=== PATIENT | male | born 1935 | race Caucasian/White ===

== ENCOUNTER 2020-01-01 04:40 | Inpatient (IN) | payer MEDICARE ==
[~2020-01-01] VITALS: Ht 175.3 cm; Wt 84.0 kg
[2020-01-01 06:35] VITALS: BP 158/88
[2020-01-01 07:44] LABS: HEMATOCRIT 37.1 % (42.0-52.0); HEMOGLOBIN 11.5 g/dl (13.5-17.5); MEAN CORPUSCULAR HEMOGLOBIN 26.6 pg (27.0-33.0); MEAN CORPUSCULAR VOLUME 85.9 fl (80.0-96.0); PLATELET COUNT, AUTOMATED 288 10^3/uL (150-450); RED BLOOD COUNT 4.32 10^6/uL (4.30-6.10); WHITE BLOOD COUNT 12.8 10^3/uL (4.0-10.0)
[2020-01-01 08:04] LABS: INR 1.25; PROTHROMBIN TIME 15.4 SECONDS (11.8-14.0)
[2020-01-01] MEDS ORDERED: BETA1OI TOP (08:09)
[2020-01-01] MEDS ORDERED: LEFL1TAB4 PO (08:09)
[2020-01-01] MEDS ORDERED: BIOF4GEL4 TOP (08:09)
[2020-01-01] MEDS ORDERED: MYLASSUD PO (08:09)
[2020-01-01] MEDS ORDERED: PRED5TA PO (08:09)
[2020-01-01] MEDS ORDERED: CLOP75TA2 PO (08:09)
[2020-01-01] MEDS ORDERED: REPA1TAB6 PO (08:09)
[2020-01-01] MEDS ORDERED: ATOR40TA75 PO (08:09)
[2020-01-01] MEDS ORDERED: AMLO5TAB6 PO (08:09)
[2020-01-01] MEDS ORDERED: ASPI1CHW3 PO (08:09)
[2020-01-01] MEDS ORDERED: ACET-907 PO (08:09)
[2020-01-01] MEDS ORDERED: GUAI100L31 PO (08:09)
[2020-01-01] MEDS ORDERED: GABA600T4 PO (08:09)
[2020-01-01] MEDS ORDERED: TRIA1OI TOP (08:09)
[2020-01-01] MEDS ORDERED: INSUDET SC (08:09)
[2020-01-01] MEDS ORDERED: LISI-538 PO (08:09)
[2020-01-01] MEDS ORDERED: CALC0.009 TOP (08:09)
[2020-01-01] MEDS ORDERED: METO1TAB7 PO (08:09)
[2020-01-01] MEDS ORDERED: MIRA3350 PO (08:09)
[2020-01-01] MEDS ORDERED: COUG1LOZ8 MT (08:09)
[2020-01-01] MEDS ORDERED: LOPE-39 PO ×2 (08:09)
[2020-01-01] MEDS ORDERED: PANT-23 PO (08:09)
[2020-01-01] MEDS ORDERED: LASI40TA9 PO (08:09)
[2020-01-01] MEDS ORDERED: KETO0.02 OU (08:09)
[2020-01-01 08:12] LABS: ALBUMIN 2.9 GM/DL (3.2-5.2); ALT/SGPT 27 U/L (12-78); BILIRUBIN,TOTAL 0.6 MG/DL (0.2-1.0); BLOOD UREA NITROGEN 18 MG/DL (7-18); CALCIUM LEVEL 8.8 MG/DL (8.8-10.2); CARBON DIOXIDE LEVEL 28 MEQ/L (21-32); CHLORIDE LEVEL 104 MEQ/L (98-107); CREATININE FOR GFR 1.21 MG/DL (0.70-1.30); GLOMERULAR FILTRATION RATE > 60.0 (>35); GLUCOSE, FASTING 253 MG/DL (70-100); POTASSIUM SERUM 3.8 MEQ/L (3.5-5.1); SODIUM LEVEL 137 MEQ/L (136-145); TOTAL PROTEIN 6.4 GM/DL (6.4-8.2)
[2020-01-01] MEDS ORDERED: GLUCAGON FOR INJ 1 MG VIAL (J1610) SC PRN (09:00)
[2020-01-01] MEDS ORDERED: GLUCOSE 4 GM CHEW TABLET PO PRN (09:00)
[2020-01-01] MEDS: NYSTATIN 100,000 UNITS/GM TOPICAL PWD 15 GM TOP SCH ×2 (09:00→21:34)
[2020-01-01] MEDS ORDERED: DEXTROSE 50% 50 ML SYRINGE IV PRN (09:00)
[2020-01-01] MEDS ORDERED: CLOPIDOGREL 75 MG TAB PO SCH (09:00)
--- NOTE | 2020-01-01 10:01 | REP ---
RENAL ULTRASOUND: Real-time sonographic evaluation of the kidney performed. Right kidney is mildly smaller than the left. There is mild bilateral cortical thinning. Right kidney measures 10.3 x 5.2 x 5.3 cm and left kidney 12.4 x 5.6 x 5.6 cm. There is no hydronephrosis or renal mass identified bilaterally. There is a Wise catheter in the urinary bladder. IMPRESSION: Mild renal cortical thinning bilaterally with no hydronephrosis or evidence of renal mass sonographically. Electronically Signed by Judson Mckeon MD 01/01/2020 10:37 A
[2020-01-01] MEDS ORDERED: guaiFENesin SYRUP 200 MG/10 ML UDC PO PRN (11:30)
[2020-01-01] MEDS ORDERED: MIRALAX *UNIT DOSE* 17GM PACKET PO PRN (11:30)
[2020-01-01] MEDS ORDERED: MAALOX 30 ML SUSP *UDC PO PRN (11:30)
[2020-01-01] MEDS ORDERED: ACETAMINOPHEN TAB 650MG DOSE (2X325MG) PO PRN (11:30)
[2020-01-01] MEDS ORDERED: TRIAMCINOLONE ACET 0.1% OINTMENT 15 GM TOP PRN (11:30)
[2020-01-01] MEDS ORDERED: IPRATROPIUM 0.5MG/ALBUTEROL 2.5MG INH SOL UD 3ML (DUONEB)(J7620) NEB PRN (11:45)
[2020-01-01] MEDS: HumaLOG INSULIN (NovoLOG) PER UNIT SC SCH ×3 (12:00→21:00)
--- NOTE | 2020-01-01 12:32 | SMCUROLCON ---
Urology Consultation General Date of Consultation 01/01/20 Reason For Consultation This patient is seen for Hematuria. History of Present Illness The patient is a 84-year-old white male with a past medical history for gross hematuria. He was transfered to [facility] for gross hematuria. He is on Plavix. He resides at the [facility] and sent to the [facility] for gross hematuria where he was hooked up to [facility]. Bleeding continued and he was transfered to [facility]. He has a history of a UTI and was onantibiotics. Now has bladder spasms. CT negative for renal lesions, hydronephrosis or bladder abnormality. Past Medical History Medical History Cataracts, DM, GERD, Gout, HTN, Peripheral atrery disease, RA, COPD, Dementia, CKD Surgical Hstory Unknown Family History Family History non contributory Social History Social History Lives in an adult home Alcohol: Denies Drugs: denies Medications Current Medications Current Medications Medications (Trade) Dose Ordered Sig/Claudine Route PRN Reason Start Time Stop Time Status Last Admin Dose Admin Acetaminophen (Tylenol Tab) 650 mg Q6H PRN PO PAIN / FEVER 01/01/20 11:30 Al Hydrox/Mg Hydrox/Simethicone (Mylanta) 30 ml Q4H PRN PO HEARTBURN 01/01/20 11:30 Albuterol/ Ipratropium (Duoneb (Ipr 0.5mg/Alb 2.5mg)) 3 ml Q2HP PRN NEB SOB/WHEEZING 01/01/20 11:45 Amlodipine Besylate (Norvasc) 5 mg DAILY PO 01/01/20 09:00 Aspirin (Aspirin Chewable) 81 mg DAILY PO 01/01/20 09:00 Atorvastatin Calcium (Lipitor) 40 mg DAILY PO 01/01/20 09:00 Calcipotriene (Dovonex 0.005%) QHS TOP 01/01/20 21:00 Clopidogrel Bisulfate (PLAVix) 75 mg DAILY PO 01/01/20 09:00 Dextrose (Dextrose 50%) 25 ml ASDIRECTED PRN IV SEE LABEL COMMENTS 01/01/20 09:00 Gabapentin (Neurontin) 600 mg TID PO 01/01/20 09:00 Glucagon (Glucagon) 1 mg ASDIRECTED PRN SC SEE LABEL COMMENTS 01/01/20 09:00 Glucose (Glucose) 16 GM ASDIRECTED PRN PO SEE LABEL COMMENTS 01/01/20 09:00 Guaifenesin (Robitussin) 5 ml Q6H PRN PO COUGH 01/01/20 11:30 Home Med (Med Rec Complete!) ASDIRECTED XX 01/01/20 08:15 01/01/20 08:11 DC Insulin Detemir (Levemir Insulin) 50 units BID SC 01/01/20 09:00 Insulin Human Lispro (HumaLOG INSULIN) SEE PROTOCOL TABLE AC SC 01/01/20 12:00 Insulin Human Lispro (HumaLOG INSULIN) SEE PROTOCOL TABLE QHS SC 01/01/20 21:00 Lisinopril (Prinivil) 20 mg BID PO 01/01/20 09:00 Metoprolol Succinate (TopROL XL) 50 mg DAILY PO 01/01/20 09:00 Pantoprazole Sodium (Protonix) 40 mg DAILY PO 01/01/20 09:00 Polyethylene Glycol (Miralax) 1 pkt DAILY PRN PO CONSTIPATION 01/01/20 11:30 Prednisone (Deltasone) 5 mg DAILY PO 01/01/20 09:00 Triamcinolone Acetonide (Kenalog 0.1% Ointment) BID PRN TOP DRY SKIN 01/01/20 11:30 Allergies Allergies: Coded Allergies: Tetanus Vaccines and Toxoid (Verified Allergy, Unknown, 01/01/20) naproxen (Verified Allergy, Unknown, 01/01/20) lactose (Verified Adverse Reaction, Unknown, INTOLERANCE, 01/01/20) Review of Systems General: Reports: Normal Appetite; Denies: Fatigue, Malaise Constitutional: Denies: Fever, Chills, Sweats, Weakness, Malaise Eyes: Denies: Pain, Vision change ENT: Denies: Head Aches, Sore Throat, Epistaxis Skin: Denies: Rash, Lesions, Breakdown, Nail Changes Pulmonary: Reports: Other Symptoms (rales) Cardiovascular: Denies Chest Pain, Denies Palpitations Gastrointestinal: Denies: Nausea, Vomiting, Abdominal Pain Genitourinary: Reports: Hematuria, Retention Hematologic: Denies: Bruising, Bleeding Excessively Musculoskeletal: Denies: Neck Pain, Back Pain Neurological: Denies: Weakness, Numbness, Incoordination, Change in Speech Physical Examination General Exam: Cooperative, No Acute Distress EYE EXAM: PERRLA, Conjunctiva & lids normal, EOMI; No: Sclera icteric ENT EXAM: Atraumatic, Mucous membr. moist/pink, Pharynx Normal Neck Exam: Supple; No: JVD, thyromegaly Chest Exam: Clear to auscultation, Normal air movement Heart Exam: Rate Normal, Regular Rhythm, Normal S1, Normal S2; No: Murmurs, Rubs Abdomen Exam: Normal Bowel Sounds, Soft; No: Tenderness, Hepatospenomegaly Male Exam Circumcised with [address] crowell. Testes atrophic Prostate 25 gm, benign Skin Exam: Nl turgor and temperature; No: Rash, Breakdown Neuro Exam: Normal Gait, Normal Speech, Cranial Nerves 3-12 NL, Reflexes 2+ Vital Signs/I&O Vital Signs Date Time Temp Pulse Resp B/P (MAP) Pulse Ox O2 Delivery O2 Flow Rate FiO2 01/01/20 06:35 98.1 87 21 158/88 (111) 96 Room Air Laboratory Data 24H Labs Laboratory Tests 2 01/01/20 07:19: Nucleated Red Blood Cells % (auto) 0.0, Prothrombin Time 15.4H, Prothromb Time International Ratio 1.25, Anion Gap 5L, Glomerular Filtration Rate > 60.0, Calcium Level 8.8, Total Bilirubin 0.6, Aspartate Amino Transf (AST/SGOT) 18, Alanine Aminotransferase (ALT/SGPT) 27, Alkaline Phosphatase 193H, Total Protein 6.4, Albumin 2.9L, Albumin/Globulin Ratio 0.83L 01/01/20 11:33: Urine Color REDH, Urine Appearance CLOUDYH, Urine pH 8.0, Urine Specific [place] 1.005, Urine Protein 2+H, Urine Glucose (UA) 3+H, Urine Ketones NEGATIVE, Urine Blood 3+H, Urine Nitrite NEGATIVE, Urine Bilirubin NEGATIVE, Urine Urobilinogen 0.2, Urine Leukocyte Esterase 1+H, Urine WBC (Auto) TNTCH, Urine RBC (Auto) TNTCH, Urine Hyaline Casts (Auto) 0, Urine Bacteria (Auto) NEGATIVE, Urine Squamous Epithelial Cells 0, Urine Sperm (Auto) 01/01/20 11:37: Bedside Glucose (Misc Panel) 223H CBC/BMP Laboratory Tests 01/01/20 07:19 Microbiology Microbiology 01/01/20 Urine Culture, Received Pending 01/01/20 Blood Culture, Received Pending 01/01/20 Blood Culture, Received Pending Assessment Gross hematuria on Plavix and bladder spasms Plan Continue CBI Await cultures Hold Plavix If hematuria does not clear in 1-2 days, may need cystoscopy. Time Spent on Consult: Time Spent / Consult (Minutes): 70 THOMPSON MEZA MD Jan 01, 2020 12:32
[2020-01-01] MEDS: lisinopriL 20 MG TAB PO SCH ×2 (12:33→21:33)
[2020-01-01] MEDS: METOPROLOL SUCC (TopROL XL) 50MG **XL** TAB PO SCH (12:33)
[2020-01-01] MEDS: PANTOPRAZOLE 40MG TAB (PROTONIX) PO SCH (12:33)
[2020-01-01] MEDS: ATORVASTATIN 20 MG TAB PO SCH (12:33)
[2020-01-01] MEDS: ASPIRIN 81 MG CHEW TABLET PO SCH (12:33)
[2020-01-01] MEDS: amLODIPine 5 MG TAB PO SCH (12:34)
[2020-01-01] MEDS: GABAPENTIN 300 MG CAP PO SCH ×3 (12:34→21:32)
[2020-01-01] MEDS: predniSONE 5 MG TAB PO SCH (12:34)
[2020-01-01] MEDS: LEVEMIR (INSULIN DETEMIR) 1 UNITS/0.01ML SC SCH ×2 (12:35→21:34)
[2020-01-01] MEDS: oxyBUTYnin 5 MG TAB PO PRN (12:42)
[2020-01-01 13:21] LABS: HEMATOCRIT 36.6 % (42.0-52.0); HEMOGLOBIN 11.7 g/dl (13.5-17.5)
[2020-01-01 14:00] VITALS: BP 179/95
--- NOTE | 2020-01-01 17:17 | HPE ---
DATE OF ADMISSION: 01/01/2020 PRIMARY CARE PROVIDER: Dr. Gustafson in [place] He is a resident of [place] assisted [facility]. HISTORY OF THE PRESENT ILLNESS: Marcelo is an 84-year-old male with extensive past medical history as noted below and chronically on aspirin and Plavix due to stents from peripheral vascular disease, directly transferred from [facility] due to persistent hematuria. He reports he had a urinary tract infection (UTI) about 2 weeks ago for which he started antibiotics about 1 week ago and reportedly still has three pills left. He is unsure of the antibiotic. He reports that he has had randall hematuria with blood clots as of yesterday and went into the emergency room (ER) and had a Wise placed with continuous bladder irrigation with noticeable urinary retention as well. Hematuria persisted, and he was thereafter transferred to [facility] for high level of care. He reports his symptoms started around 6:00 p.m. last night and had a similar episode around 4 years ago in [place], which did not require any surgical intervention and improved with supportive care at that time. He reports some discomfort since the Wise was placed; however, otherwise denies any dysuria, urgency, frequency, or any other episodes of hematuria. Denies any history of kidney stones or passing any recent stones. No fever, chills, nausea, vomiting, or any other blood loss. He has no other complaints and reports he is otherwise doing well. Of note, he also reports a 20-pound unintentional weight loss over the past 6 months, and a cough with camilo phlegm, which also began around 2 weeks ago, but is now improving. Per transfer records, his UA was found to be cloudy with trace leukocytes, large blood and too numerous to count RBCs but was otherwise negative for any signs of infection. White count at that point was 10.5 with an hemoglobin and hematocrit (H and H) of 12.3 and 38.5 and an INR of 1.2. He had a chest x- ray done at [place] that was unremarkable as well as CT of the abdomen and pelvis without contrast that was negative for any acute changes. No nephrolithiasis, ureterolithiasis or hydronephrosis. He will be directly admitted to the medical floor and urology will be contacted. PAST MEDICAL HISTORY: Peripheral vascular disease, on aspirin and Plavix and two stents in the left leg. Rheumatoid arthritis. 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 Insulin-dependent diabetes mellitus, type 2 with neuropathy. Chronic obstructive pulmonary disease (COPD). No supplemental oxygen at baseline. Chronic kidney disease, stage III. History of CVA in 2002 in [place]. Dyslipidemia. Gout. BPH with urinary retention and obstruction. Gastroesophageal reflux disease (GERD). Hypertension. HOME MEDICATIONS: - Tylenol 650 mg by mouth every 6 hours as needed - aluminum, magnesium, simethicone 30 mL by mouth every 4 hours as needed for heartburn - amlodipine 5 mg by mouth daily - aspirin 81 mg by mouth daily - atorvastatin 40 mg by mouth daily - betamethasone topical as needed for itching. - calcipotriene one dose topical nightly - Plavix 75 mg by mouth daily - Lasix 40 mg by mouth daily - gabapentin 600 mg by mouth three times a day - guaifenesin 5 mL by mouth every 6 hours as needed for cough - Levemir 75 units subcu twice a day - ketotifen fumarate one drop ophthalmic three times a day as needed for itching - leflunomide 20 mg by mouth daily - lisinopril 20 mg by mouth twice a day - loperamide 2 mg by mouth daily and 2 mg by mouth as needed for diarrhea - menthol one dose topical as needed for pain - metoprolol succinate 50 mg by mouth daily - Protonix 40 mg by mouth daily - MiraLAX 17 grams by mouth daily as needed for constipation - prednisone 5 mg by mouth daily - repaglinide 4 mg by mouth three times a day - triamcinolone one dose topically twice a day as needed for dry skin SOCIAL HISTORY: Prior tobacco use. Quit about 10 years ago. Smoked one pack per day for 60 years. Denies any alcohol or illicit substances. He is retired and lives in [facility]. 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 SURGICAL HISTORY: Right rotator cuff repair with a titanium valerie. Bilateral hammertoe repair. Tonsillectomy. Two stents in the left lower leg for peripheral vascular disease and bilateral cataracts. FAMILY HISTORY: Mother had COPD, father had prostate cancer and diabetes mellitus and of a heart attack. Brother passed of bladder cancer. ALLERGIES: TETANUS VACCINE and TOXOID per the patient caused angioedema and NAPROXEN and LACTOSE unknown. REVIEW OF SYSTEMS: Denies fever, chills, night sweats. Admits to 20-pound unintentional weight loss over the past 6 months. Denies any headache, blurred vision, or hearing changes. No issues with eating or drinking. Denies chest pain or palpitations. No shortness of breath. Admits to coughing with camilo phlegm production, now improving. No wheezing or chest wall pain. Denies any abdominal pain or any hematochezia, melena. Has bouts of constipation and diarrhea for which he is on chronic medication. Admits to urinary retention with hematuria with similar episode in the past. Denies dysuria, urgency, frequency or any passing of kidney stones. Denies any lower extremity swelling, rashes, lumps, bumps, or any new weaknesses or paresthesias. PHYSICAL EXAM: Vital Signs: Temperature 98.1, pulse 87, respirations 21, blood pressure 158/88, mean arterial pressure (MAP) of 111, pulse oximetry 96% on room air. He is laying comfortably in bed in no acute distress. Alert and oriented times three, pleasantly conversant, hard of hearing. Head is normocephalic, atraumatic with moist mucous membranes with suboptimal dentition. No oral lesions. Patent airway. Neck: Supple without any appreciable adenopathy. No jugular venous distention (JVD). Heart: Regular rate and rhythm. No appreciable murmur, clicks, gallops. Distant heart sounds due to body habitus. Lungs: Clear throughout with mild wheezing bilateral bases. No accessory muscle use or signs of distress. Speaking in full sentences. Abdomen: Obese with reducible hernia superior to the umbilicus. No other abdominal masses appreciated. No rebound, guarding, rigidity. Genitourinary (): Wise catheter in place with bright red bloody output that is also leaking out of the catheter insertion site. Lower Extremities: No edema. Able to move all extremities. Muscle strength intact and equal bilaterally. Neurologic: No focal deficits. Appropriately follows commands. Skin: No visible rashes. LABS: WBC 12.8, hemoglobin and hematocrit 11.5 and 37.1, platelets 288. Sodium and potassium 137 and 3.8. Chloride and bicarbonate 104 and 28. BUN and creatinine 18 and 1.21. AST, ALT 18 and 127. Alkaline phosphatase 193. Albumin 2.9. INR 1.25. Urine is red, cloudy, 2+ protein, 3+ glucose, 3+ blood, 1+ leukocyte esterase, too numerous to count WBCs, too numerous to count RBCs. Blood cultures pending times two sets. Urine culture pending. Renal ultrasound on admission shows mild renal cortical thinning bilaterally with no hydronephrosis or evidence of renal mass sonographically. A chest x-ray done in [facility] was negative for acute cardiopulmonary process and CT of the abdomen and pelvis without contrast done at [facility] showed fat stranding in the anterior abdomen, likely his abdominal hernia and was negative for nephrolithiasis, ureterolithiasis, or hydronephrosis and was otherwise unremarkable. ASSESSMENT AND PLAN: This is an 84-year-old male chronically on aspirin and Plavix for coronary artery disease and peripheral vascular disease with left extremity stent, presenting for hematuria, started suddenly 6:00 p.m. last night. Transferred from [facility] to [facility]. Originally resides in [place] assisted [facility]. 1. Randall hematuria. Source unknown at this time. Initial UA in [place] was negative for signs of infection. Per our UA, there is 1+ leukocyte esterase, negative for nitrites, and too numerous to count WBCs but negative for bacteria. Urine culture is pending. Currently will await the culture. Patient is otherwise afebrile and hemodynamically stable. Will hold off on antibiotics at this time. Imaging also negative for any obstructing stones or other intrinsic renal abnormality. Urology is consulted; appreciate Dr. Cervantes input. Per his recommendations, continuous bladder irrigation at this time and await cultures, hold the Plavix and possible cystoscopy if hematuria does not clear in 1-2 days. Monitor hemoglobin and hematocrit. Currently stable at 11. Continue pain control and monitor urinary output. 2. Coronary artery disease/peripheral vascular disease with left lower extremity stents. History of silent myocardial infarction (AZ). No cardiac complaints and is otherwise stable. Aspirin is continued. Will hold Plavix for the next 2 days per urology recommendations. Monitor hemoglobin and hematocrit. 3. Chronic obstructive pulmonary disease, stable. No signs of exacerbation. Breathing room air. Continue his chronic prednisone. 4. Rheumatoid arthritis. Continue prednisone and leflunomide. 5. Alternating constipation/diarrhea. Monitor bowel movements. He is chronically on bowel meds. Adjust accordingly. 6. Non-insulin dependent diabetes mellitus, type 2. Levemir 75 units subcu twice a day and repaglinide at home. Continue insulin sliding scale inpatient. Gabapentin for neuropathy continued. 7. Dyslipidemia. Continue statin. 8. Hypertension. Continue amlodipine and lisinopril and metoprolol succinate. Will hold Lasix at this time as we monitor renal function. 9. CVA. No acute deficits, stable. 10. Chronic kidney disease, stage III. Monitor renal function with current creatinine 1.21, GFR greater than 60, which is stable compared to labs done at [place]. No other labs to compare to. 11. Gastroesophageal reflux disease. Continue proton pump inhibitor (PPI). 12. Deep vein thrombosis (DVT) prophylaxis. Mechanical. DISPOSITION: Patient is directly transferred from [place] to [facility]. Admit to medical floor. Urology following. Monitor for clinical improvement. CODE STATUS: Discussed in depth with patient; he confirms DO NOT RESUSCITATE/DO NOT INTUBATE (DNR/DNI) and no feeding tubes. Medical Orders for Life-Sustaining Treatment (MOLST) form was filled out with staff present. He also reports his healthcare proxy is his son with contact information in the chart. DRU
[2020-01-01 18:09] LABS: HEMATOCRIT 35.4 % (42.0-52.0); HEMOGLOBIN 11.1 g/dl (13.5-17.5)
[2020-01-01 18:46] VITALS: BP 165/78
[2020-01-01] MEDS: CALCIPOTRIENE CREAM 0.005% 60GM TOP SCH (21:35)
[2020-01-01 22:00] VITALS: BP 159/80
[2020-01-02 00:12] LABS: HEMATOCRIT 33.6 % (42.0-52.0); HEMOGLOBIN 10.6 g/dl (13.5-17.5)
[2020-01-02 06:00] VITALS: BP 163/82
[2020-01-02 06:04] LABS: BASO # 0.1 10^3/uL (0.0-0.2); BASO % 0.7 % (0.0-1.0); EOS # 0.3 10^3/uL (0.0-0.5); EOS % 3.1 % (0.0-3.0); HEMATOCRIT 34.8 % (42.0-52.0); HEMOGLOBIN 10.7 g/dl (13.5-17.5); LYMPH # 2.2 10^3/uL (1.5-5.0); LYMPH % 22.9 % (24.0-44.0); MEAN CORPUSCULAR HEMOGLOBIN 26.6 pg (27.0-33.0); MEAN CORPUSCULAR HGB CONC 30.7 g/dl (32.0-36.5); MEAN CORPUSCULAR VOLUME 86.6 fl (80.0-96.0); MONO # 0.7 10^3/uL (0.0-0.8); MONO % 7.4 % (0.0-5.0); NEUTROPHILS # 6.2 10^3/uL (1.5-8.5); PLATELET COUNT, AUTOMATED 281 10^3/uL (150-450); RED BLOOD COUNT 4.02 10^6/uL (4.30-6.10); WHITE BLOOD COUNT 9.5 10^3/uL (4.0-10.0)
[2020-01-02 06:17] LABS: BLOOD UREA NITROGEN 19 MG/DL (7-18); CALCIUM LEVEL 8.9 MG/DL (8.8-10.2); CARBON DIOXIDE LEVEL 31 MEQ/L (21-32); CHLORIDE LEVEL 107 MEQ/L (98-107); CREATININE FOR GFR 1.16 MG/DL (0.70-1.30); GLOMERULAR FILTRATION RATE > 60.0 (>35); GLUCOSE, FASTING 105 MG/DL (70-100); POTASSIUM SERUM 3.3 MEQ/L (3.5-5.1); SODIUM LEVEL 140 MEQ/L (136-145)
[2020-01-02] MEDS ORDERED: POTASSIUM CHLORIDE 10 MEQ SR TABLET PO ONE (07:30)
[2020-01-02] MEDS: ASPIRIN 81 MG CHEW TABLET PO SCH (08:31)
[2020-01-02] MEDS: GABAPENTIN 300 MG CAP PO SCH ×3 (08:31→21:00)
[2020-01-02] MEDS: predniSONE 5 MG TAB PO SCH (08:31)
[2020-01-02] MEDS: METOPROLOL SUCC (TopROL XL) 50MG **XL** TAB PO SCH (08:32)
[2020-01-02] MEDS: PANTOPRAZOLE 40MG TAB (PROTONIX) PO SCH (08:32)
[2020-01-02] MEDS: ATORVASTATIN 20 MG TAB PO SCH (08:32)
[2020-01-02] MEDS: NYSTATIN 100,000 UNITS/GM TOPICAL PWD 15 GM TOP SCH ×2 (08:33→21:01)
[2020-01-02] MEDS: amLODIPine 5 MG TAB PO SCH (08:33)
[2020-01-02] MEDS: lisinopriL 20 MG TAB PO SCH ×2 (08:33→21:00)
[2020-01-02] MEDS: HumaLOG INSULIN (NovoLOG) PER UNIT SC SCH ×4 (08:34→21:00)
[2020-01-02] MEDS: LEVEMIR (INSULIN DETEMIR) 1 UNITS/0.01ML SC SCH ×2 (08:34→21:01)
--- NOTE | 2020-01-02 08:59 | IPNPDOC ---
Subjective Review oF Systems Chief Complaint The patient is a 84-year-old male admitted with a reason for visit of Hematuria. Events since Last Encounter Per nursing, the patient required manually irrigation once o/n. Otherwise the catheter drained well on slow CBI. The patient denies pain. No n/v. No f/c/ns. Objective Physical Examination General Exam: Alert, Cooperative ABDOMEN EXAM: BS Hyperactive, Soft; No: Tenderness Skin Exam: Nl turgor and temperature Neuro Exam: Normal Speech Psych Exam: Mental status NL, Mood NL Other physical findings 3-way catheter in place w/ pink urine draining in the tubing w/ CBI currently clamped off Vital Signs/I&O Vital Signs Date Time Temp Pulse Resp B/P (MAP) Pulse Ox O2 Delivery O2 Flow Rate FiO2 01/02/20 08:32 95 142/59 01/02/20 06:00 97.1 18 90 Room Air I&O- Last 24 Hours up to 6 AM 01/02/20 06:00 Intake Total 1060 ml Output Total 1700 ml Balance -640 ml Laboratory Data Labs 24H Laboratory Tests 2 01/01/20 11:33: Urine Color REDH, Urine Appearance CLOUDYH, Urine pH 8.0, Urine Specific [place] 1.005, Urine Protein 2+H, Urine Glucose (UA) 3+H, Urine Ketones NEGATIVE, Urine Blood 3+H, Urine Nitrite NEGATIVE, Urine Bilirubin NEGATIVE, Urine Urobilinogen 0.2, Urine Leukocyte Esterase 1+H, Urine WBC (Auto) TNTCH, Urine RBC (Auto) TNTCH, Urine Hyaline Casts (Auto) 0, Urine Bacteria (Auto) NEGATIVE, Urine Squamous Epithelial Cells 0, Urine Sperm (Auto) 01/01/20 11:37: Bedside Glucose (Misc Panel) 223H 01/01/20 16:44: Bedside Glucose (Misc Panel) 218H 01/01/20 20:44: Bedside Glucose (Misc Panel) 240H 01/02/20 05:43: Immature Granulocyte % (Auto) 0.9, Neutrophils (%) (Auto) 65.0, Lymphocytes (%) (Auto) 22.9L, Monocytes (%) (Auto) 7.4H, Eosinophils (%) (Auto) 3.1H, Basophils (%) (Auto) 0.7, Neutrophils # (Auto) 6.2, Lymphocytes # (Auto) 2.2, Monocytes # (Auto) 0.7, Eosinophils # (Auto) 0.3, Basophils # (Auto) 0.1, Nucleated Red Blood Cells % (auto) 0.0, Anion Gap 2L, Glomerular Filtration Rate > 60.0, Calcium Level 8.9, Magnesium Level 2.0 CBC/BMP Laboratory Tests 01/01/20 13:08 01/01/20 18:00 01/01/20 23:42 01/02/20 05:43 FSBS Laboratory Tests Test 01/01/20 11:37 01/01/20 16:44 01/01/20 20:44 Range/Units Bedside Glucose (Misc Panel) 223 218 240 83-110 MG/DL Microbiology Microbiology 01/01/20 Urine Culture, Received Pending 01/01/20 Blood Culture, Received Pending 01/01/20 Blood Culture, Received Pending Assessment/Plan Date Seen The patient was seen on 01/02/20. Patient Summary This is an 84 y/o M normally on plavix, admitted for gross hematuria and clot retention. His Hb is stable. Hematuria appears to be improving w/ plavix dc'd. Urine culture still pending. Plan/VTE VTE Prophylaxis Ordered?: Yes VTE Exclusion Mechanical Proph: N/A:VTE Prophy Ordered Plan/Urinary Catheter Reason for insertion/continuin: Acute obstruct/retention Plan - continue to hold plavix - f/u urine culture - keep CBI clamped as long as urine is pink or clearer - if patient does well off of CBI all day today, potentially ok for discharge tomorrow w/ catheter in place - if hematuria worsens where he is clotting off the catheter, he will require cystoscopy JOVANNA BELLO MD Jan 02, 2020 08:59
[2020-01-02] MEDS: oxyBUTYnin 5 MG TAB PO PRN (09:44)
[2020-01-02 14:00] VITALS: BP 145/63
--- NOTE | 2020-01-02 15:42 | IPNPDOC ---
Text Note Date of Service The patient was seen on 01/02/20. NOTE S: Pt examined at bedside. Felling well, no complaints. Hematuria slightly clearer today and still having clots. CBI was clamped this am. H&H stable. No f/c/cp/sob/pelvic pain. PE: Vitals: see below General: NAD, A&Ox3, resting comfortably HEENT: NCAT, EOMI, anicteric sclera, MMM CV: RRR, no murmurs or clicks or rub. No edema RESP: wheezing throughout, improved from prior day. No resp distress ABD: soft, NT, ND. Benign EXTREMITIES: 2+ radial pulses b/l, able to move all extremities : Wise catheter in place with CBI clamped. Light red urine output, less bloody than yesterday. Bladder nontender to palpation NEURO: no focal deficits or acute changes A/P: This is an 84-year-old male resident of [facility], chronically on aspirin and Plavix for coronary artery disease and peripheral vascular disease with left extremity stent, presenting for hematuria, started suddenly 6:00 p.m. night before admission. Direct transfer from [facility] to [facility]. 1. David hematuria. - persists but improving with CBI. CBI was clamped this am per Urology, and restarted given his clots; appreciate Urology input - source unclear currently; imaging & [place] UA negative - H&H stable. Planned for OR with tomorrow - cystoscopy pending - NPO after midnight, start gentle fluids then - pain control & continue holding Plavix per Urology - per Revised Cardiac Risk Index, 3 pts = 15% risk of cardiac event within 30days. Pt has >4METs and no anginal equivalent - hemodynamically stable & optimized for OR. Decrease insulin dose tonight and in am. Monitor resp status intra & post-op. 2. CAD/PVD with LLE stents. - History of silent myocardial infarction - stable, no cardiac or leg complaints - Aspirin is continued. Plavix on hold 3. COPD - no signs of exacerbation. - prn nebs & continue chronic prednisone 4. Rheumatoid arthritis - Continue prednisone and leflunomide. 5. Alternating constipation/diarrhea - Monitor bowel movements. He is chronically on bowel meds. - Adjust accordingly 6. NIDDM2 with neuropathy - Continue ISS & basal insulin inpt - acceptable range - Levemir 75 units subcu twice a day and repaglinide at home. - Gabapentin for neuropathy continued. 7. Dyslipidemia - Continue statin. 8. Hypertension - Continue amlodipine and lisinopril and metoprolol succinate. - Lasix on hold with renal function monitoring and awaiting OR; euvolemic 9. Hx of CVA - No acute deficits, stable. 10. Chronic kidney disease, stage III - stable from prior 11. GERD - continue PPI DVT ppx: mechanical CODE STATUS: DNR/DNI, no feeding tubes. MOLST reviewed with pt and signed on admission, in chart. Son is HCP DISPOSITION: pending clinical improvement. OPtimized for OR tomorrow am with Joseph Carlos, I+O Joseph PAZ I+O Laboratory Tests 01/01/20 13:08 01/01/20 18:00 01/01/20 23:42 01/02/20 05:43 Vital Signs Date Time Temp Pulse Resp B/P (MAP) Pulse Ox O2 Delivery O2 Flow Rate FiO2 01/02/20 08:32 95 142/59 01/02/20 06:00 97.1 18 90 Room Air I&O- Last 24 Hours up to 6 AM 01/02/20 06:00 Intake Total 1060 ml Output Total 1700 ml Balance -640 ml GME ATTESTATION GME ATTESTATION My faculty preceptor for this patient encounter was physically present during the encounter and was fully available. All aspects of the patient interview, examination, medical decision making process, and medical care plan development were reviewed and approved by the faculty preceptor. The faculty preceptor is aware and concurs with the plan as stated in the body of this note and will attest to such by his/her cosignature. ATTENDING NOTE I, Aniya Moffett, have independently examined this patient and performed my own physical exam, as well as reviewed the documentation and edited where necessary. I have discussed in detail with the resident / student the findings and plan of treatment as documented by the resident / student and edited their note. I agree with their findings and treatment plan and have edited their documentation. I will continue to follow the patient during this hospital stay. LEONARDO CESPEDES DO Jan 02, 2020 11:20 ANIYA MOFFETT MD Jan 02, 2020 15:42
[2020-01-02] MEDS: LOPERAMIDE 2 MG CAPLET PO PRN (16:16)
[2020-01-02] MEDS: CALCIPOTRIENE CREAM 0.005% 60GM TOP SCH (21:02)
[2020-01-02 22:00] VITALS: BP 145/67
[2020-01-03] VITALS (11 sets, daily range): BP systolic 123–192; BP diastolic 58–84; O2SAT 92
[2020-01-03] MEDS: D5W/0.45% SODIUM CHLORIDE 1,000 ML IV SCH ×2 (00:15→11:49)
[2020-01-03] MEDS: oxyBUTYnin 5 MG TAB PO PRN ×2 (04:36→17:11)
[2020-01-03 06:10] LABS: BASO # 0.1 10^3/uL (0.0-0.2); BASO % 0.8 % (0.0-1.0); EOS # 0.3 10^3/uL (0.0-0.5); EOS % 2.6 % (0.0-3.0); HEMATOCRIT 31.4 % (42.0-52.0); HEMOGLOBIN 9.8 g/dl (13.5-17.5); LYMPH # 1.7 10^3/uL (1.5-5.0); MEAN CORPUSCULAR HEMOGLOBIN 27.1 pg (27.0-33.0); MEAN CORPUSCULAR HGB CONC 31.2 g/dl (32.0-36.5); MONO # 0.7 10^3/uL (0.0-0.8); MONO % 6.9 % (0.0-5.0); NEUTROPHILS # 7.7 10^3/uL (1.5-8.5); NEUTROPHILS % 72.5 % (36.0-66.0); PLATELET COUNT, AUTOMATED 272 10^3/uL (150-450); RED BLOOD COUNT 3.61 10^6/uL (4.30-6.10); WHITE BLOOD COUNT 10.6 10^3/uL (4.0-10.0)
[2020-01-03 06:29] LABS: CREATININE FOR GFR 1.26 MG/DL (0.70-1.30); GLOMERULAR FILTRATION RATE 58.3 (>35); MAGNESIUM LEVEL 1.8 MG/DL (1.8-2.4); POTASSIUM SERUM 3.9 MEQ/L (3.5-5.1)
[2020-01-03] MEDS: HumaLOG INSULIN (NovoLOG) PER UNIT SC SCH ×4 (07:30→21:19)
[2020-01-03] MEDS: IPRATROPIUM 0.5MG/ALBUTEROL 2.5MG INH SOL UD 3ML (DUONEB)(J7620) NEB SCH ×3 (08:00→19:50)
[2020-01-03] MEDS ORDERED: ALBUTEROL SULFATE 2.5 MG/0.5 ML INH NEB SOLN As Ordered ONE (08:06)
[2020-01-03] MEDS ORDERED: ALBUTEROL SULFATE 2.5 MG/0.5 ML INH NEB SOLN INH ONE (08:15)
[2020-01-03] MEDS ORDERED: fentaNYL 250 MCG/5 ML INJECTION (J3010) As Ordered ONE (08:16)
[2020-01-03] MEDS ORDERED: MIDAZOLAM INJ 2 MG/2 ML VIAL (J2250) As Ordered ONE (08:16)
[2020-01-03] MEDS ORDERED: dexameTHASONE 4 MG/ML 1ML VIAL (J1100 PER 1MG) As Ordered ONE (08:17)
[2020-01-03] MEDS ORDERED: ONDANSETRON 4MG/2ML VIAL (J2405) As Ordered ONE (08:17)
[2020-01-03] MEDS ORDERED: ROCURONIUM BROMIDE 50 MG/5 ML VIAL As Ordered ONE ×2 (08:17→09:42)
[2020-01-03] MEDS ORDERED: propofoL 200 MG/20 ML VIAL As Ordered ONE (08:17)
[2020-01-03] MEDS ORDERED: LIDOCAINE 2% INJ 100 MG/5 ML SDV (FOR ANES.) As Ordered ONE (08:17)
--- NOTE | 2020-01-03 08:23 | IPNPDOC ---
Subjective Review oF Systems Chief Complaint The patient is a 84-year-old male admitted with a reason for visit of Hematuria. Events since Last Encounter The patient's catheter stopped draining a few times yesterday, requiring manual irrigation. He feels well at this time and denies pain. No n/v. No f/c/ns. Objective Physical Examination General Exam: Alert, Cooperative Chest Exam: Normal air movement Heart Exam: Positive: Rate Normal ABDOMEN EXAM: Soft; No: Tenderness Skin Exam: Nl turgor and temperature Neuro Exam: Normal Speech Psych Exam: Mental status NL, Mood NL Other physical findings 3-way catheter in place w/ CBI on and dark pink urine draining Vital Signs/I&O Vital Signs Date Time Temp Pulse Resp B/P (MAP) Pulse Ox O2 Delivery O2 Flow Rate FiO2 01/03/20 07:40 98.1 93 20 192/78 (116) 93 Room Air I&O- Last 24 Hours up to 6 AM 01/03/20 06:00 Intake Total 44145 ml Output Total 26178 ml Balance -4690 ml Laboratory Data Labs 24H Laboratory Tests 2 01/02/20 12:30: Bedside Glucose (Misc Panel) 262H 01/02/20 16:52: Bedside Glucose (Misc Panel) 273H 01/02/20 20:39: Bedside Glucose (Misc Panel) 245H 01/03/20 05:41: Immature Granulocyte % (Auto) 1.2, Neutrophils (%) (Auto) 72.5H, Lymphocytes (%) (Auto) 16.0L, Monocytes (%) (Auto) 6.9H, Eosinophils (%) (Auto) 2.6, Basophils (%) (Auto) 0.8, Neutrophils # (Auto) 7.7, Lymphocytes # (Auto) 1.7, Monocytes # (Auto) 0.7, Eosinophils # (Auto) 0.3, Basophils # (Auto) 0.1, Nucleated Red Blood Cells % (auto) 0.0, Anion Gap 5L, Glomerular Filtration Rate 58.3, Calcium Level 8.0L, Magnesium Level 1.8 CBC/BMP Laboratory Tests 01/03/20 05:41 FSBS Laboratory Tests Test 01/02/20 12:30 01/02/20 16:52 01/02/20 20:39 Range/Units Bedside Glucose (Misc Panel) 262 273 245 83-110 MG/DL Microbiology Microbiology 01/01/20 Urine Culture - Final, Complete 01/01/20 Blood Culture - Preliminary, Resulted No growth after 24 hours . All specim... 01/01/20 Blood Culture - Preliminary, Resulted No growth after 24 hours . All specim... Assessment/Plan Date Seen The patient was seen on 01/03/20. Patient Summary This is an 84 y/o M admitted w/ gross hematuria and clot retention. His Hb is stable, but his catheter keeps clotting off. I recommended that we take him to the OR this morning for cystoscopy, clot evacuation, possible transurethral resection of bladder tumors, bilateral retrograde pyelograms. After a discussion of the risks and benefits, informed consent was signed. Plan/VTE VTE Prophylaxis Ordered?: Yes VTE Exclusion Mechanical Proph: N/A:VTE Prophy Ordered Plan/Urinary Catheter Reason for insertion/continuin: Acute obstruct/retention Plan - plan for OR now - 2g ancef human resources communications manager to OR - NPO - can resume a regular diet postop JOVANNA BELLO MD Jan 03, 2020 08:23
[2020-01-03] MEDS ORDERED: ceFAZolin SOD 2 GM in IV 1 EA IV ONE (08:30)
[2020-01-03] MEDS ORDERED: CONRAY-60 60% 50ML VIAL (Q9961) As Ordered ONE (08:35)
[2020-01-03] MEDS ORDERED: ceFAZolin 2 GM/D5W 50 ML IV BAG (J0690 PER 500MG) As Ordered ONE (08:35)
[2020-01-03] MEDS ORDERED: ACETAMINOPHEN 1000MG 100ML IV BTL (OFIRMEV) (J0131 PER 10MG) As Ordered ONE (09:11)
[2020-01-03] MEDS ORDERED: SUGAMMADEX SODIUM 500 MG/5 ML VIAL (BRIDION) As Ordered ONE (09:38)
--- NOTE | 2020-01-03 10:00 | REP ---
Retrograde pyelogram: Five views. History: Clot evacuation. Hematuria. 7 seconds of fluoroscopy time is reported. Findings: A sequence of five last image hold fluoroscopically obtained spot radiographs of the abdomen document ureteral cannulation, contrast injection bilaterally. Electronically Signed by Vasquez Mccallum MD 01/03/2020 09:53 A
[2020-01-03] MEDS ORDERED: LEVALBUTEROL 1.25 MG/0.5 ML CONCENTRATE NEB As Ordered ONE (10:17)
--- NOTE | 2020-01-03 10:29 | RO ---
DATE OF PROCEDURE: 01/03/2020 PREPROCEDURE DIAGNOSIS: Gross hematuria. POSTPROCEDURE DIAGNOSIS: Gross hematuria. PROCEDURE: Cystoscopy, transurethral resection of bladder mass (greater than 5 cm), clot evacuation, bilateral retrograde pyelogram with intraoperative images. SURGEON: Lars Soto MD PAYROLL TAX ANALYST: None. ANESTHESIA: General. OPERATIVE INDICATIONS: This is an 84-year-old male who presented to the hospital with gross hematuria and clot retention a few days ago. As his catheter continued to clot off, he presented to the hospital and, therefore, brought to the operating room today for the above-listed procedure. DESCRIPTION OF PROCEDURE: The patient was brought to the operating room, and general anesthesia was induced. Prophylactic antibiotics were infused. The patient was then placed in the dorsal lithotomy position and prepped and draped in the usual sterile fashion. At this point, a resectoscope was inserted into the urethral meatus and advanced into the bladder using a visual obturator. Once inside the bladder, of note, there was a very large blood clot occupying almost a large portion of the bladder lumen. I tried to use an Ellik evacuator to evaluate the clot, but this would not break the clot up enough to get it out of the bladder. I therefore utilized a bipolar loop to resect the clot and break it up into smaller pieces; and after that was done, I was able to evacuate all the clot out of the bladder using the Ellik evacuator. Once that was done, the bladder was thoroughly examined, and no tumors were seen. Both ureteral orifices were orthotopic; and, of note, they did not efflux any urine while I examined them. Next, I utilized a 5-Romanian open-ended ureteral catheter and obtained bilateral retrograde pyelograms. Both were negative for filling defects, hydronephrosis, or extravasation. I then examined the bladder once again, and there were very small areas of bleeding at the bladder base that were cauterized. Also, inside the prostatic urethra, there was a moderate amount of bleeding. This was also cauterized. On the posterior bladder wall, there was a moderate amount of bladder edema, likely from the catheter. This area was also cauterized. There was no significant area of bleeding found, but once I was done cauterizing, I examined the bladder for several minutes, and it no longer appeared to be an active bleeding at all. At this point, I withdrew the resectoscope and inserted a 20-Romanian Wise catheter. The balloon was filled with 10 mL of sterile water, and then the catheter was connected to gravity drainage. This marked the conclusion of the procedure. The patient was then taken out of the dorsal lithotomy position, awakened from anesthesia, and transported to the recovery room in stable condition. ESTIMATED BLOOD LOSS: 10 mL. COMPLICATIONS: None. SPECIMENS: None. PLAN: The patient will be taken back up to the regular nursing floor. He will be monitored throughout the day; and if his urine remains pink or clearer through tomorrow and his blood counts remain stable, he can be discharged home with the catheter in place. We will schedule followup in the urology clinic in a week or two for catheter removal. DRU
[2020-01-03] MEDS ORDERED: LR 1,000 ML IV SCH (10:30)
[2020-01-03] MEDS ORDERED: oxyCODONE 5MG TAB PO PRN (10:30)
[2020-01-03] MEDS ORDERED: ONDANSETRON 4MG/2ML VIAL (J2405) IV PRN (10:30)
[2020-01-03] MEDS ORDERED: fentaNYL 100 MCG/2 ML INJECTION (J3010) IV PRN (10:30)
[2020-01-03] MEDS ORDERED: oxyCODONE 5MG TAB As Ordered ONE (10:41)
[2020-01-03] MEDS ORDERED: LEVALBUTEROL 1.25 MG/0.5 ML CONCENTRATE NEB INH ONE (11:00)
[2020-01-03] MEDS: GABAPENTIN 300 MG CAP PO SCH ×3 (11:47→21:20)
[2020-01-03] MEDS: ASPIRIN 81 MG CHEW TABLET PO SCH (11:47)
[2020-01-03] MEDS: ATORVASTATIN 20 MG TAB PO SCH (11:47)
[2020-01-03] MEDS: amLODIPine 5 MG TAB PO SCH (11:48)
[2020-01-03] MEDS: METOPROLOL SUCC (TopROL XL) 50MG **XL** TAB PO SCH (11:48)
[2020-01-03] MEDS: PANTOPRAZOLE 40MG TAB (PROTONIX) PO SCH (11:48)
[2020-01-03] MEDS: predniSONE 5 MG TAB PO SCH (11:48)
[2020-01-03] MEDS: lisinopriL 20 MG TAB PO SCH ×2 (11:48→21:19)
[2020-01-03] MEDS: NYSTATIN 100,000 UNITS/GM TOPICAL PWD 15 GM TOP SCH ×2 (11:49→21:20)
[2020-01-03] MEDS: LEVEMIR (INSULIN DETEMIR) 1 UNITS/0.01ML SC SCH ×2 (11:49→21:19)
[2020-01-03 15:28] LABS: HEMATOCRIT 30.8 % (42.0-52.0); HEMOGLOBIN 9.4 g/dl (13.5-17.5)
--- NOTE | 2020-01-03 16:45 | IPNPDOC ---
Text Note Date of Service The patient was seen on 01/03/20. NOTE S: Pt examined at bedside. Underwent retrograde pyelogram and cystoscopy earlier today and is doing well post-op. H&H stable. No f/c/cp/sob/pelvic pain. Wise still bleeding light red, but no clots. PE: Vitals: see below General: NAD, A&Ox3, resting comfortably HEENT: NCAT, EOMI, anicteric sclera, MMM CV: RRR, no murmurs or clicks or rub. No edema RESP: wheezing throughout, improved from prior day. No resp distress ABD: soft, NT, ND. Benign EXTREMITIES: 2+ radial pulses b/l, able to move all extremities : Wise catheter in place. One [place] urine; no visible clot. Bladder nontender to palpation NEURO: no focal deficits or acute changes A/P: This is an 84-year-old male resident of [facility], chronically on aspirin and Plavix for coronary artery disease and peripheral vascular disease with left extremity stent, presenting for hematuria, started suddenly 6:00 p.m. night before admission. Direct transfer from [facility] to [facility]. 1. David hematuria 2/2 bladder & urethral bleed - pt asymptomatic & H&H stable - cystoscopy with Dr. Soto today revealed >5cm blood clot in bladder that was resected & evacuated; no tumors; small areas of bleeding at bladder base cauterized; moderate bleeding in prostatic urethra - Wise remains in place. Do Wise teaching - Per Urology: hold Plavix at least 1 week, monitor Wise output, if remains pink or clearer, may d/c homewith catheter; f/u Urology clinic 1-2 weeks 2. CAD/PVD with LLE stents. - History of silent myocardial infarction - stable, no cardiac or leg complaints - Aspirin is continued. Plavix on hold 3. COPD - no signs of exacerbation. - prn nebs & continue chronic prednisone 4. Rheumatoid arthritis - Continue prednisone and leflunomide. 5. Alternating constipation/diarrhea - Monitor bowel movements. He is chronically on bowel meds. - Adjust accordingly 6. NIDDM2 with neuropathy - Continue ISS & basal insulin inpt - acceptable range - Levemir 75 units subcu twice a day and repaglinide at home. - Gabapentin for neuropathy continued. 7. Dyslipidemia - Continue statin. 8. Hypertension - Continue amlodipine and lisinopril and metoprolol succinate. - Lasix on hold with renal function monitoring and awaiting OR; euvolemic 9. Hx of CVA - No acute deficits, stable. 10. Chronic kidney disease, stage III - stable from prior 11. GERD - continue PPI DVT ppx: mechanical CODE STATUS: DNR/DNI, no feeding tubes. MOLST reviewed with pt and signed on admission, in chart. Son is HCP DISPOSITION: pending clinical improvement. Cleared PT. Likely home 24-42 hrs. VS,Fishbone, I+O VS, Fishbone, I+O Laboratory Tests 01/03/20 05:41 01/03/20 15:06 Vital Signs Date Time Temp Pulse Resp B/P (MAP) Pulse Ox O2 Delivery O2 Flow Rate FiO2 01/03/20 15:20 97.2 98 20 142/68 (92) 94 Nasal Cannula 3.0 I&O- Last 24 Hours up to 6 AM 01/03/20 06:00 Intake Total 48674 ml Output Total 13942 ml Balance -4690 ml GME ATTESTATION GME ATTESTATION My faculty preceptor for this patient encounter was physically present during the encounter and was fully available. All aspects of the patient interview, examination, medical decision making process, and medical care plan development were reviewed and approved by the faculty preceptor. The faculty preceptor is aware and concurs with the plan as stated in the body of this note and will attest to such by his/her cosignature. ATTENDING NOTE I, Aniya Moffett, have independently examined this patient and performed my own physical exam, as well as reviewed the documentation and edited where necessary. I have discussed in detail with the resident / student the findings and plan of treatment as documented by the resident / student and edited their note. I agree with their findings and treatment plan and have edited their documentation. I will continue to follow the patient during this hospital stay. LEONARDO CESPEDES DO Jan 03, 2020 16:45 ANIYA MOFFETT MD Jan 03, 2020 22:07
[2020-01-03] MEDS: PHENAZOPYRIDINE 100 MG TAB PO SCH ×2 (18:36→21:20)
[2020-01-03] MEDS ORDERED: POTASSIUM CHLORIDE 10 MEQ SR TABLET PO ONE (21:15)
[2020-01-03] MEDS: CALCIPOTRIENE CREAM 0.005% 60GM TOP SCH (21:20)
[2020-01-03 21:52] LABS: CALCIUM LEVEL 7.2 MG/DL (8.8-10.2); CREATININE FOR GFR 1.83 MG/DL (0.70-1.30); GLOMERULAR FILTRATION RATE 37.9 (>35); POTASSIUM SERUM 4.9 MEQ/L (3.5-5.1)
[2020-01-03] MEDS ORDERED: NS 1,000 ML IV SCH (22:00)
[2020-01-03] MEDS: NS 1,000 ML IV SCH (22:32)
[2020-01-03] MEDS ORDERED: HumuLIN R (REGULAR) INSULIN (NovoLIN R) **100U/ML** PER UNIT SC ONE (23:00)
[2020-01-04] VITALS (8 sets, daily range): BP systolic 151–167; BP diastolic 81–89; O2SAT 92–94
[2020-01-04] MEDS ORDERED: HumuLIN R (REGULAR) INSULIN (NovoLIN R) **100U/ML** PER UNIT SC ONE ×2 (01:00→03:00)
[2020-01-04] MEDS: IPRATROPIUM 0.5MG/ALBUTEROL 2.5MG INH SOL UD 3ML (DUONEB)(J7620) NEB SCH ×4 (01:19→19:27)
[2020-01-04 04:26] LABS: BASO % 0.3 % (0.0-1.0); HEMATOCRIT 29.1 % (42.0-52.0); LYMPH # 0.9 10^3/uL (1.5-5.0); LYMPH % 6.2 % (24.0-44.0); MEAN CORPUSCULAR HEMOGLOBIN 27.2 pg (27.0-33.0); MEAN CORPUSCULAR HGB CONC 30.9 g/dl (32.0-36.5); MEAN CORPUSCULAR VOLUME 87.9 fl (80.0-96.0); MONO # 0.7 10^3/uL (0.0-0.8); MONO % 4.6 % (0.0-5.0); NEUTROPHILS # 12.9 10^3/uL (1.5-8.5); PLATELET COUNT, AUTOMATED 271 10^3/uL (150-450); RED BLOOD COUNT 3.31 10^6/uL (4.30-6.10); WHITE BLOOD COUNT 14.7 10^3/uL (4.0-10.0)
[2020-01-04 05:01] LABS: CALCIUM LEVEL 7.4 MG/DL (8.8-10.2); CREATININE FOR GFR 1.57 MG/DL (0.70-1.30); GLOMERULAR FILTRATION RATE 45.3 (>35); MAGNESIUM LEVEL 1.8 MG/DL (1.8-2.4); POTASSIUM SERUM 4.9 MEQ/L (3.5-5.1)
[2020-01-04] MEDS: oxyBUTYnin 5 MG TAB PO PRN (07:52)
[2020-01-04] MEDS: cefTRIAXone SOD 1 GM in D5W MINI-BAG PLUS 50 ML IV SCH (07:53)
[2020-01-04] MEDS: HumaLOG INSULIN (NovoLOG) PER UNIT SC SCH ×4 (07:57→20:41)
[2020-01-04] MEDS: ASPIRIN 81 MG CHEW TABLET PO SCH (08:01)
[2020-01-04] MEDS: PANTOPRAZOLE 40MG TAB (PROTONIX) PO SCH (08:02)
[2020-01-04] MEDS: ATORVASTATIN 20 MG TAB PO SCH (08:02)
[2020-01-04] MEDS: METOPROLOL SUCC (TopROL XL) 50MG **XL** TAB PO SCH (08:02)
[2020-01-04] MEDS: PHENAZOPYRIDINE 100 MG TAB PO SCH ×3 (08:02→20:40)
[2020-01-04] MEDS: GABAPENTIN 300 MG CAP PO SCH ×3 (08:03→20:40)
[2020-01-04] MEDS: predniSONE 5 MG TAB PO SCH (08:03)
[2020-01-04] MEDS: amLODIPine 5 MG TAB PO SCH (08:03)
[2020-01-04] MEDS: lisinopriL 20 MG TAB PO SCH ×2 (08:04→20:40)
--- NOTE | 2020-01-04 08:26 | REP ---
PORTABLE CHEST X-RAY: SITTING AP VIEW. HISTORY: Hypoxia. No comparison study. FINDINGS: Monitoring electrodes overlie the chest. Mild cardiomegaly is observed. The thoracic aorta is calcific and tortuous. Pulmonary vasculature is not increased. Pleural angles are sharp. No definite infiltrate is seen. 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 IMPRESSION: Cardiomegaly. Otherwise no acute disease. Electronically Signed by Vasquez Mccallum MD 01/04/2020 09:33 A
[2020-01-04] MEDS: LEVEMIR (INSULIN DETEMIR) 1 UNITS/0.01ML SC SCH ×2 (09:15→20:41)
[2020-01-04] MEDS: NYSTATIN 100,000 UNITS/GM TOPICAL PWD 15 GM TOP SCH ×2 (09:15→20:42)
[2020-01-04] MEDS: NS 1,000 ML IV SCH ×2 (09:15→17:06)
--- NOTE | 2020-01-04 12:42 | IPNPDOC ---
Subjective Review oF Systems Chief Complaint The patient is a 84-year-old male admitted with a reason for visit of Hematuria. General: Reports: Normal Appetite; Denies: Fatigue, Malaise Constitutional: Denies: Fever, Chills, Sweats, Weakness, Malaise Eyes: Denies: Pain, Vision change ENT: Denies: Head Aches, Sore Throat, Epistaxis Skin: Denies: Rash, Lesions, Breakdown, Nail Changes Pulmonary: Denies: Dyspnea, Cough Cardiovascular: Denies Chest Pain, Denies Palpitations Gastrointestinal: Denies: Nausea, Vomiting, Abdominal Pain Genitourinary: Denies: Dysuria, Frequency, Incontinence, Hematuria Hematologic: Denies: Bruising, Bleeding Excessively Endocrine: Denies: Polydipsia, Polyphagia, Polyuria Musculoskeletal: Denies: Neck Pain, Back Pain Neurological: Denies: Weakness, Numbness, Incoordination, Change in Speech Psych: Reports: Mood Normal; Denies: Anxiety, Depression Objective Physical Examination General Exam: Alert, Cooperative Eye Exam: PERRLA, Conjunctiva & lids normal, EOMI; No: Sclera icteric ENT EXAM: Atraumatic, Mucous membr. moist/pink, Pharynx Normal Neck Exam: Supple; No: JVD, thyromegaly Chest Exam: Normal air movement Heart Exam: Positive: Rate Normal ABDOMEN EXAM: Soft; No: Tenderness Skin Exam: Nl turgor and temperature Neuro Exam: Normal Speech Psych Exam: Mental status NL, Mood NL Vital Signs/I&O Vital Signs Date Time Temp Pulse Resp B/P (MAP) Pulse Ox O2 Delivery O2 Flow Rate FiO2 01/04/20 10:52 92 Room Air 01/04/20 10:00 98.3 106 19 164/84 (110) 01/04/20 02:00 3.0 I&O- Last 24 Hours up to 6 AM 01/04/20 05:59 Intake Total 6360 ml Output Total 1800 ml Balance 4560 ml Laboratory Data Labs 24H Laboratory Tests 2 01/03/20 16:40: Bedside Glucose (Misc Panel) 475H 01/03/20 21:05: Bedside Glucose (Misc Panel) > 600*H 01/03/20 21:06: Bedside Glucose (Misc Panel) 592*H 01/03/20 21:20: Anion Gap 7L, Glomerular Filtration Rate 37.9, Calcium Level 7.2L 01/03/20 22:33: Bedside Glucose (Misc Panel) 539*H 01/03/20 22:35: Bedside Glucose (Misc Panel) 559*H 01/04/20 00:32: Bedside Glucose (Misc Panel) 513*H 01/04/20 00:33: Bedside Glucose (Misc Panel) 473H 01/04/20 02:11: Bedside Glucose (Misc Panel) 479H 01/04/20 03:32: Bedside Glucose (Misc Panel) 453H 01/04/20 04:14: Immature Granulocyte % (Auto) 0.9, Neutrophils (%) (Auto) 88.0H, Lymphocytes (%) (Auto) 6.2L, Monocytes (%) (Auto) 4.6, Eosinophils (%) (Auto) 0.0, Basophils (%) (Auto) 0.3, Neutrophils # (Auto) 12.9H, Lymphocytes # (Auto) 0.9L, Monocytes # (Auto) 0.7, Eosinophils # (Auto) 0.0, Basophils # (Auto) 0.0, Nucleated Red Bl ood Cells % (auto) 0.0, Anion Gap 4L, Glomerular Filtration Rate 45.3, Calcium Level 7.4L, Magnesium Level 1.8, AZ-Bkk-X-Type Natriuretic Peptide 670H, B- Hydroxybutyrate 0.89 01/04/20 05:01: Bedside Glucose (Misc Panel) 398H 01/04/20 06:17: Bedside Glucose (Misc Panel) 346H 01/04/20 11:34: Bedside Glucose (Misc Panel) 287H CBC/BMP Laboratory Tests 01/03/20 15:06 01/03/20 21:20 01/04/20 04:14 FSBS Laboratory Tests Test 01/03/20 16:40 01/03/20 21:05 01/03/20 21:06 01/03/20 22:33 Range/Units Bedside Glucose (Misc Panel) 475 > 600 592 539 83-110 MG/DL Test 01/03/20 22:35 01/04/20 00:32 01/04/20 00:33 01/04/20 02:11 Range/Units Bedside Glucose (Misc Panel) 559 513 473 479 83-110 MG/DL Test 01/04/20 03:32 01/04/20 05:01 01/04/20 06:17 01/04/20 11:34 Range/Units [facility] 453 398 346 287 83-110 MG/DL Microbiology Microbiology 01/04/20 Blood Culture, Received Pending 01/04/20 Blood Culture, Received Pending 01/01/20 Urine Culture - Final, Complete 01/01/20 Blood Culture - Preliminary, Resulted No Growth after 72 hours. All specime... 01/01/20 Blood Culture - Preliminary, Resulted No Growth after 72 hours. All specime... Assessment/Plan Date Seen The patient was seen on 01/04/20. Patient Summary Patient's urine continues to be hematuric. He is not drinking large amounts of fluids. The drainage tends to be much cleared until the patient becomes more active. He has no complaints of bladder spasms or abdominal discomfort. Plan/VTE VTE Prophylaxis Ordered?: Yes VTE Exclusion Mechanical Proph: N/A:VTE Prophy Ordered Plan/Urinary Catheter Reason for insertion/continuin: Acute obstruct/retention Plan Since the patient presently has a 2-way catheter and, at some point that he increase his hydration to keep the bladder flushed. No need to periodically irrigate catheter to make sure he doesn't perform any more large clots. I have encouraged him to continue to drink as much as he can. At this point, the patient will continue to hydrate and nurses may manually irrigate the catheter periodically. Urine should clear in another day or 2. THOMPSON MEZA MD Jan 04, 2020 12:42
[2020-01-04] MEDS ORDERED: CEFD300CAP PO (13:07)
[2020-01-04] MEDS ORDERED: OXYB5TAB10 PO (13:07)
[2020-01-04] MEDS ORDERED: NYST10006 TOP (13:07)
--- NOTE | 2020-01-04 13:26 | DS.PDOC ---
Discharge Summary General Date of Admission Jan 01, 2020 at 06:35 Date of Discharge 01/05/20 Attending Physician: ANIYA MOFFETT MD Specialist/Consultants Involve Urology: Dr. Soto & Dr. Cervantes Discharge Summary PROCEDURES PERFORMED DURING STAY: cystoscopy, clot evacuation 01/03/20 DISCHARGE DIAGNOSES: 1. Randall hematuria 2/2 bladder and urethral bleed 2. VENKATESH on CKD III, resolved 3. BPH with urinary retention and obstruction. 4. Peripheral vascular disease, on aspirin and Plavix and two stents in the left leg. 5. Coronary artery disease with a silent myocardial infarction (UT) over a decade ago. 6. Chronic obstructive pulmonary disease (COPD). No supplemental oxygen at baseline. 7. Rheumatoid arthritis. 8. History of CVA in 2002 in [place]. 9. Dyslipidemia. 10. Gout. 11. Insulin-dependent diabetes mellitus, type 2 with neuropathy. 12. Gastroesophageal reflux disease (GERD). 13. Hypertension. CODE STATUS: DNR/DNI, no feeding tubes. MOLST reviewed with pt and signed on admission, in chart. Son is HCP HISTORY OF PRESENT ILLNESS: Marcelo is an 84-year-old male with extensive past medical history as noted above and chronically on aspirin and Plavix due to stents from peripheral vascular disease, directly transferred from [facility] due to persistent hematuria. He reports he had a urinary tract i nfection (UTI) about 2 weeks ago for which he started antibiotics about 1 week ago and reportedly still has three pills left. He is unsure of the antibiotic. He reports that he has had randall hematuria with blood clots as of yesterday and went into the emergency room (ER) and had a Crowell placed with continuous bladder irrigation with noticeable urinary retention as well. Hematuria persisted, and he was thereafter transferred to [facility] for high level of care. He reports his symptoms started around 6:00 p.m. night prior to admission and had a similar episode around 4 years ago in [place], which did not require any surgical intervention and improved with supportive care at that time. He reports some discomfort since the Crowell was placed; however, otherwise denies any dysuria, urgency, frequency, or any other episodes of hematuria. Denies any history of kidney stones or passing any recent stones. No fever, chills, nausea, vomiting, or any other blood loss. He has no other complaints and reports he is otherwise doing well. Of note, he also reports a 20-pound unintentional weight loss over the past 6 months, and a cough with camilo phlegm, which also began around 2 weeks ago, but is now improving. Per transfer records, his UA was found to be cloudy with trace leukocytes, large blood and too numerous to count RBCs but was otherwise negative for any signs of infection. White count at that point was 10.5 with an hemoglobinand hematocrit (H and H) of 12.3 and 38.5 and an INR of 1.2. He had a chest x-ray done at [facility] that was unremarkable as well as CT of the abdomen and pelvis without contrast that was negative for any acute changes. No nephrolithiasis, ureterolithiasis or hydronephrosis. He will be directly admitted to the medical floor and urology will be contacted. HOSPITAL COURSE: Patient was transferred from [facility] to [facility]. No complications during his stay. Was asymptomatic with stable blood levels. Urology was consulted. Per their recommendations, Plavix was held, Aspirin 81mg continued, patient was started on continuous bladder irrigation, but still had persistent hematuria and blood clots. Taken to the OR for cystoscopy and was found to have >5cm blood clot in bladder that was resected & evacuated; no tumors; small areas of bleeding at bladder base cauterized; moderate bleeding in prostatic urethra. His blood levels remained stable after surgery, with Crowell left in place per urology recommendations. Some blood clots noted on day of discharge, but otherwise urine was starting to clear up. Per Urology: continue holding Plavix at least 1 week, monitor Crowell output, d/c home with catheter; f/u Urology clinic 1-2 weeks. Of note, he had hyperglycemia in the 500s postoperatively despite fluids being stopped. Insulin regimen readjusted. Patient asymptomatic with negative workup. He also was noted to have rising white count 10-14 with positive UA. Will be discharged home on full course of cefdinir with urine culture negative at time of discharge. Plan of care fully discussed with patient. Crowell teaching done, patient cleared home safety eval, and will be transferred back to his assisted living. Discharge was held into the next day, 01/04, to monitor for renal & WBC improve ment and stable H&H. Renal fxn back to baseline, H&H stable, and leukocytosis downtrending. Pt is stable without any changes from the day before. Safe for discharge. DISCHARGE MEDICATIONS: Please see below. ALLERGIES: Please see below. PHYSICAL EXAMINATION ON DISCHARGE: Vitals: see below General: NAD, A&Ox3, laying in bed comfortably HEENT: NCAT, EOMI, anicteric sclera, MMM CV: RRR, no murmurs or clicks or rub. No edema RESP: wheezing throughout, improved from prior day. No resp distress ABD: soft, NT, ND. Benign EXTREMITIES: 2+ radial pulses b/l, able to move all extremities : Crowell catheter in place. Bright red in crowell bag, dark orange in drain. No visible clot. Bladder nontender NEURO: no focal deficits or acute changes LABORATORY DATA: Please see below. IMAGING: * 01/01/20 renal ultrasound: Mild renal cortical thinning bilaterally with no hydronephrosis or evidence of renal mass sonographically. * 01/03/20 cystoscopy: transurethral resection of bladder mass (greater than 5 cm), clot evacuation, bilateral retrograde pyelogram with intraoperative images. * 01/04/20 CXR: Cardiomegaly. Otherwise no acute disease. PROGNOSIS: fair ACTIVITY: As tolerated. DIET: consistent carb, 2g sodium DISPOSITION: back to [facility] DISCHARGE INSTRUCTIONS: 1. Follow-up with PCP within a week and Urology within 7 days 2. Return to ER for emergency 3. Take all meds as prescribed 4. Monitor for fevers 5. Continue Crowell care DISCHARGE CONDITION: Stable. TIME SPENT ON DISCHARGE: Greater than 35 minutes. Vital Signs/I&Os Vital Signs Date Time Temp Pulse Resp B/P (MAP) Pulse Ox O2 Delivery O2 Flow Rate FiO2 01/04/20 10:52 92 Room Air 01/04/20 10:00 98.3 106 19 164/84 (110) 01/04/20 02:00 3.0 I&O- Last 24 Hours up to 6 AM 01/04/20 06:00 Intake Total 7150 ml Output Total 2550 ml Balance 4600 ml Laboratory Data Labs 24H Laboratory Tests 2 01/03/20 16:40: Bedside Glucose (Misc Panel) 475H 01/03/20 21:05: Bedside Glucose (Misc Panel) > 600*H 01/03/20 21:06: Bedside Glucose (Misc Panel) 592*H 01/03/20 21:20: Anion Gap 7L, Glomerular Filtration Rate 37.9, Calcium Level 7.2L 01/03/20 22:33: Bedside Glucose (Misc Panel) 539*H 01/03/20 22:35: Bedside Glucose (Misc Panel) 559*H 01/04/20 00:32: Bedside Glucose (Misc Panel) 513*H 01/04/20 00:33: Bedside Glucose (Misc Panel) 473H 01/04/20 02:11: Bedside Glucose (Misc Panel) 479H 01/04/20 03:32: Bedside Glucose (Misc Panel) 453H 01/04/20 04:14: Immature Granulocyte % (Auto) 0.9, Neutrophils (%) (Auto) 88.0H, Lymphocytes (%) (Auto) 6.2L, Monocytes (%) (Auto) 4.6, Eosinophils (%) (Auto) 0.0, Basophils (%) (Auto) 0.3, Neutrophils # (Auto) 12.9H, Lymphocytes # (Auto) 0.9L, Monocytes # (Auto) 0.7, Eosinophils # (Auto) 0.0, Basophils # (Auto) 0.0, Nucleated Red Blood Cells % (auto) 0.0, Anion Gap 4L, Glomerular Filtration Rate 45.3, Calcium Level 7.4L, Magnesium Level 1.8, XR-Zyp-N-Type Natriuretic Peptide 670H, B-Hydroxybutyrate 0.89 01/04/20 05:01: Bedside Glucose (Misc Panel) 398H 01/04/20 06:17: Bedside Glucose (Misc Panel) 346H 01/04/20 11:34: Bedside Glucose (Misc Panel) 287H CBC/BMP Laboratory Tests 01/03/20 15:06 01/03/20 21:20 01/04/20 04:14 FSBS Laboratory Tests Test 01/03/20 16:40 01/03/20 21:05 01/03/20 21:06 01/03/20 22:33 Range/Units Bedside Glucose (Misc Panel) 475 > 600 592 539 83-110 MG/DL Test 01/03/20 22:35 01/04/20 00:32 01/04/20 00:33 01/04/20 02:11 Range/Units Bedside Glucose (Misc Panel) 559 513 473 479 83-110 MG/DL Test 01/04/20 03:32 01/04/20 05:01 01/04/20 06:17 01/04/20 11:34 Range/Units Bedside Glucose ([facility] Panel) 507 398 346 287 83-110 MG/DL Microbiology Microbiology 01/04/20 Blood Culture, Received Pending 01/04/20 Blood Culture, Received Pending 01/01/20 Urine Culture - Final, Complete 01/01/20 Blood Culture - Preliminary, Resulted No Growth after 72 hours. All specime... 01/01/20 Blood Culture - Preliminary, Resulted No Growth after 72 hours. All specime... 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 Cefdinir (Cefdinir) 300 Mg Capsule, 1 CAP PO BID Gabapentin (Gabapentin) 600 Mg Tablet, 600 MG PO TID, (Reported) Insulin Detemir (Levemir) 100 Unit/1 Ml Vial, 75 UNITS SC BID, (Reported) Leflunomide (Leflunomide) 20 Mg Tablet, 20 MG PO DAILY, (Reported) Lisinopril (Lisinopril) 20 Mg Tablet, 20 MG PO BID, (Reported) Loperamide HCl (Imodium A-D) 2 Mg Capsule, 2 MG PO DAILY, (Reported) Metoprolol Succinate (Metoprolol Succinate) 50 Mg Tab.er.24h, 50 MG PO DAILY, (Reported) Nystatin (Nystop) 60 Gm Powder, 0 DOSE TOP BID Pantoprazole Sodium (Pantoprazole Sodium) 40 Mg Tablet.dr, 40 MG PO DAILY, (Reported) Prednisone (Prednisone) 5 Mg Tablet, 5 MG PO DAILY, (Reported) Repaglinide (Repaglinide) 2 Mg Tablet, 4 MG PO TID, (Reported) Scheduled PRN Acetaminophen (Tylenol) 325 Mg Tablet, 650 MG PO Q6H PRN for PAIN / FEVER, (Reported) Aluminum/Magnesium/Simeth (Mag-Al Plus Suspension) 30 Ml Oral.susp, 30 ML PO Q4H PRN for HEARTBURN, (Reported) Betamethasone Mary (Betamethasone Valerate) 45 Gm Oint...g., 1 DOSE TOP PRN PRN for ITCHING, (Reported) APPLY TO LOWER LEFT LEG TO REDUCE SWELLING, ITCHING, AND REDNESS Ketotifen Fumarate (Ketotifen Fumarate) 5 Ml Drops, 1 DROP OU TID PRN for ITCHING, (Reported) FOR ITCHY EYES DUE TO ALLERGIES Loperamide HCl (Imodium A-D) 2 Mg Capsule, 2 MG PO PRN PRN for DIARRHEA, (Reported) MDD 16MG Menthol (Biofreeze) 118 Ml Gel..ml., 1 DOSE TOP PRN PRN for PAIN, (Reported) APPLY TO SHOULDER Menthol (Cough Drops) 7.6 Mg Lozenge, 7.6 MG MT PRN PRN for SORE THROAT OR COUGH, (Reported) Oxybutynin Chloride (Oxybutynin Chloride) 5 Mg Tablet, 5 MG PO TID PRN for bladder spasm Polyethylene Glycol 3350 (Miralax) 119 Gm Powder, 17 GM PO DAILY PRN for CONSTIPATION, (Reported) Triamcinolone Acet (Triamcinolone Acetonide 0.1% Oint) 15 Gm Oint...g., 1 DOSE TOP BID PRN for DRY SKIN, (Reported) APPLY TO AFFECTED AREA OF LEG TO RELIEVE ITCHING, DRYNESS, AND REDNESS guaiFENesin (Cough Syrup) 100 Mg/5 Ml Liquid, 5 ML PO Q6H PRN for COUGH, (Reported) Allergies Coded Allergies: Tetanus Vaccines and Toxoid (Verified Allergy, Unknown, 01/01/20) naproxen (Verified Allergy, Unknown, 01/01/20) lactose (Verified Adverse Reaction, Unknown, INTOLERANCE, 01/01/20) GME ATTESTATION GME ATTESTATION My faculty preceptor for this patient encounter was physically present during the encounter and was fully available. All aspects of the patient interview, examination, medical decision making process, and medical care plan development were reviewed and approved by the faculty preceptor. The faculty preceptor is aware and concurs with the plan as stated in the body of this note and will attest to such by his/her cosignature. ATTENDING NOTE I, Aniya Moffett, have independently examined this patient and performed my own physical exam, as well as reviewed the documentation and edited where necessary. I have discussed in detail with the resident / student the findings and plan of treatment as documented by the resident / student and edited their note. I agree with their findings and treatment plan and have edited their documentation. I will continue to follow the patient during this hospital stay. Time spent on discharge: 35 minutes LEONARDO CESPEDES DO Jan 04, 2020 13:26 ANIYA MOFFETT MD Jan 04, 2020 15:39
[2020-01-04 15:00] LABS: CALCIUM LEVEL 8.2 MG/DL (8.8-10.2); CREATININE FOR GFR 1.32 MG/DL (0.70-1.30); GLOMERULAR FILTRATION RATE 55.3 (>35); POTASSIUM SERUM 4.5 MEQ/L (3.5-5.1)
[2020-01-04 15:04] LABS: HEMATOCRIT 31.1 % (42.0-52.0); HEMOGLOBIN 9.6 g/dl (13.5-17.5); MEAN CORPUSCULAR HEMOGLOBIN 27.7 pg (27.0-33.0); MEAN CORPUSCULAR HGB CONC 30.9 g/dl (32.0-36.5); MEAN CORPUSCULAR VOLUME 89.6 fl (80.0-96.0); PLATELET COUNT, AUTOMATED 284 10^3/uL (150-450); RED BLOOD COUNT 3.47 10^6/uL (4.30-6.10); WHITE BLOOD COUNT 15.9 10^3/uL (4.0-10.0)
[2020-01-04 18:35] LABS: BILIRUBIN, URINE MANUAL OBSCURED (NEGATIVE); GLUCOSE, URINE (UA) MANUAL 4+(1000 MG/DL) mg/dL (NEGATIVE); KETONE, URINE MANUAL NEGATIVE (NEGATIVE); UROBILINOGEN, URINE MANUAL OBSCURED mg/dl (NORMAL)
[2020-01-04 18:44] LABS: BACTERIA, URINE SMALL AMOUNT; MUCUS, URINE SMALL AMOUNT (NEGATIVE); RBC, URINE TNTC /hpf (0-3)
[2020-01-04 18:45] LABS: HYALINE CAST, URINE NONE SEEN /lpf (0-1); SQUAMOUS EPITHELIAL CELL URINE NONE SEEN /hpf (SMALL AMT)
[2020-01-04] MEDS: CALCIPOTRIENE CREAM 0.005% 60GM TOP SCH (20:42)
[2020-01-05] MEDS: NS 1,000 ML IV SCH (01:20)
[2020-01-05] MEDS: IPRATROPIUM 0.5MG/ALBUTEROL 2.5MG INH SOL UD 3ML (DUONEB)(J7620) NEB SCH ×2 (02:00→07:41)
[2020-01-05 06:00] VITALS: BP 156/62
[2020-01-05 06:50] LABS: BASO # 0.1 10^3/uL (0.0-0.2); BASO % 0.8 % (0.0-1.0); EOS # 0.2 10^3/uL (0.0-0.5); EOS % 1.2 % (0.0-3.0); HEMATOCRIT 30.7 % (42.0-52.0); HEMOGLOBIN 9.5 g/dl (13.5-17.5); LYMPH # 2.1 10^3/uL (1.5-5.0); LYMPH % 15.1 % (24.0-44.0); MEAN CORPUSCULAR HEMOGLOBIN 26.8 pg (27.0-33.0); MEAN CORPUSCULAR HGB CONC 30.9 g/dl (32.0-36.5); MEAN CORPUSCULAR VOLUME 86.7 fl (80.0-96.0); MONO # 0.8 10^3/uL (0.0-0.8); MONO % 5.8 % (0.0-5.0); NEUTROPHILS # 10.5 10^3/uL (1.5-8.5); NEUTROPHILS % 75.3 % (36.0-66.0); PLATELET COUNT, AUTOMATED 285 10^3/uL (150-450); RED BLOOD COUNT 3.54 10^6/uL (4.30-6.10); WHITE BLOOD COUNT 13.9 10^3/uL (4.0-10.0)
[2020-01-05 07:18] LABS: BLOOD UREA NITROGEN 19 MG/DL (7-18); CALCIUM LEVEL 8.1 MG/DL (8.8-10.2); CARBON DIOXIDE LEVEL 26 MEQ/L (21-32); CHLORIDE LEVEL 112 MEQ/L (98-107); CREATININE FOR GFR 1.03 MG/DL (0.70-1.30); GLOMERULAR FILTRATION RATE > 60.0 (>35); GLUCOSE, FASTING 150 MG/DL (70-100); MAGNESIUM LEVEL 1.6 MG/DL (1.8-2.4); POTASSIUM SERUM 4.2 MEQ/L (3.5-5.1); SODIUM LEVEL 143 MEQ/L (136-145)
[2020-01-05] MEDS: HumaLOG INSULIN (NovoLOG) PER UNIT SC SCH ×2 (07:53→12:00)
[2020-01-05] MEDS: cefTRIAXone SOD 1 GM in D5W MINI-BAG PLUS 50 ML IV SCH (07:54)
[2020-01-05] MEDS: LEVEMIR (INSULIN DETEMIR) 1 UNITS/0.01ML SC SCH (08:01)
[2020-01-05] MEDS: GABAPENTIN 300 MG CAP PO SCH (08:02)
[2020-01-05] MEDS: ATORVASTATIN 20 MG TAB PO SCH (08:02)
[2020-01-05] MEDS: PHENAZOPYRIDINE 100 MG TAB PO SCH (08:02)
[2020-01-05] MEDS: ASPIRIN 81 MG CHEW TABLET PO SCH (08:02)
[2020-01-05] MEDS: predniSONE 5 MG TAB PO SCH (08:02)
[2020-01-05] MEDS: PANTOPRAZOLE 40MG TAB (PROTONIX) PO SCH (08:02)
[2020-01-05 08:05] VITALS: BP 142/66
[2020-01-05] MEDS: lisinopriL 20 MG TAB PO SCH (08:05)
[2020-01-05] MEDS: amLODIPine 5 MG TAB PO SCH (08:06)
[2020-01-05] MEDS: METOPROLOL SUCC (TopROL XL) 50MG **XL** TAB PO SCH (08:07)
[2020-01-05] MEDS: NYSTATIN 100,000 UNITS/GM TOPICAL PWD 15 GM TOP SCH (08:08)
[2020-01-05] MEDS ORDERED: CEFDINIR 300 MG CAP (OMNICEF) PO SCH (09:00)
[2020-01-05 09:50] VITALS: O2SAT 95
[2020-01-05] MEDS ORDERED: MAG SULF 1GM/100ML (MAG RUN) 1 GM in IV 1 EA IV ONE (11:00)
--- NOTE | 2020-01-05 11:44 | IPNPDOC ---
Text Note Date of Service The patient was seen on 01/05/20. NOTE S: Pt examined at bedside. Discharge was held to monitor for renal & WBC improvement, and stable H&H. All are stable and pt asympotmatic. No events overnight. No other changes. No f/c/cp/sob/pelvic pain. Wise noted to have cl ear/orange urine with intermittent clots per pt. PE: Vitals: see below General: NAD, A&Ox3, resting comfortably HEENT: NCAT, EOMI, anicteric sclera, MMM CV: RRR, no murmurs or clicks or rub. No edema RESP: wheezing throughout, improved from prior day. No resp distress ABD: soft, NT, ND. Benign EXTREMITIES: 2+ radial pulses b/l, able to move all extremities : Wise catheter in place. Armstrong urine; no visible clot. Bladder nondistended and nontender to palpation NEURO: no focal deficits or acute changes A/P: This is an 84-year-old male resident of [facility], chronically on aspirin and Plavix for coronary artery disease and peripheral vascular disease with left extremity stent, presenting for hematuria, started suddenly 6:00 p.m. night before admission. Direct transfer from [facility] to [facility]. 1. David hematuria 2/2 bladder & urethral bleed - pt asymptomatic & H&H stable, WBC downtrending, afebrile - cystoscopy with Dr. Soto 01/02 revealed >5cm blood clot in bladder that was resected & evacuated; no tumors; small areas of bleeding at bladder base cau terized; moderate bleeding in prostatic urethra - Wise remains in place. Wise teaching done. Clear urine today - Per Urology: hold Plavix at least 1 week, monitor Wise output, if remains pink or clearer, may d/c homewith catheter; f/u Urology clinic 1-2 weeks - Ceftriaxone to Cefdinir for discharge for possible UTI. Wise urine culture pending. 2. VENKATESH on CKD III - resolved s/p IVF and holding nephrotoxins - likely 2/2 acute hematuria and urologic procedure - pt asymptomatic and back to baseline 3. CAD/PVD with LLE stents. - History of silent myocardial infarction - stable, no cardiac or leg complaints - Aspirin is continued. Plavix on hold - Advised to follow up with PCP / Urology for resumption of Plavix 4. Hypomagnesemia supplemented 5. Alternating constipation/diarrhea - Monitor bowel movements. He is chronically on bowel meds. - Adjust accordingly 6. NIDDM2 with neuropathy - Continue ISS & basal insulin inpt - acceptable range - Levemir 75 units subcu twice a day and repaglinide at home. - Gabapentin for neuropathy continued. 7. Dyslipidemia - Continue statin. 8. Hypertension - Continue amlodipine and lisinopril and metoprolol succinate. - Lasix on hold with renal function monitoring and awaiting OR; euvolemic 9. Hx of CVA - No acute deficits, stable. 10. COPD - no signs of exacerbation. - prn nebs & continue chronic prednisone 11. GERD - continue PPI 12. Rheumatoid arthritis - Continue prednisone and leflunomide. DVT ppx: mechanical CODE STATUS: DNR/DNI, no feeding tubes. MOLST reviewed with pt and signed on admission, in chart. Son is HCP DISPOSITION: discharge today. Please refer to 01/03 DC summary. VS,Fishbone, I+O VS, Fishbone, I+O Laboratory Tests 01/04/20 14:12 01/04/20 14:13 01/05/20 06:40 Vital Signs Date Time Temp Pulse Resp B/P (MAP) Pulse Ox O2 Delivery O2 Flow Rate FiO2 01/05/20 09:50 95 Room Air 01/05/20 08:07 82 01/05/20 08:05 142/66 01/05/20 06:00 97.5 16 01/04/20 02:00 3.0 I&O- Last 24 Hours up to 6 AM 01/05/20 06:00 Intake Total 7210 ml Output Total 4100 ml Balance 3110 ml GME ATTESTATION GME ATTESTATION My faculty preceptor for this patient encounter was physically present during the encounter and was fully available. All aspects of the patient interview, examination, medical decision making process, and medical care plan development were reviewed and approved by the faculty preceptor. The faculty preceptor is aware and concurs with the plan as stated in the body of this note and will attest to such by his/her cosignature. ATTENDING NOTE I, Aniya Moffett, have independently examined this patient and performed my own physical exam, as well as reviewed the documentation and edited where necessary. I have discussed in detail with the resident / student the findings and plan of treatment as documented by the resident / student and edited their note. I agree with their findings and treatment plan and have edited their documentation. I will continue to follow the patient during this hospital stay. LEONARDO CESPEDES DO Jan 05, 2020 11:44 ANIYA MOFFETT MD Jan 05, 2020 14:22
[2020-01-05] MEDS: LOPERAMIDE 2 MG CAPLET PO PRN (12:29)
== END 2020-01-05 13:03 | disposition home health service (06) | DRG 696 ==
LOC: M MSPAV 06:35
PROVIDERS: ADMIT Internal Medicine; ATTEND Internal Medicine
PROC: BT00ZZZ Plain Radiography of Bladder (ICD-10-PCS; 2020-01-03)
PROC: 0TCB8ZZ Extirpation of Matter from Bladder, Via Natural or Artificial Opening Endoscopic (ICD-10-PCS; principal; 2020-01-03 15:15)
DX: R31.0 Gross hematuria (principal); I73.9 Peripheral vascular disease, unspecified; M06.9 Rheumatoid arthritis, unspecified; I25.10 Atherosclerotic heart disease of native coronary artery without angina pectoris; I25.2 Old myocardial infarction; E11.40 Type 2 diabetes mellitus with diabetic neuropathy, unspecified; J44.9 Chronic obstructive pulmonary disease, unspecified; N18.3 Chronic kidney disease, stage 3 (moderate); Z66 Do not resuscitate; E11.22 Type 2 diabetes mellitus with diabetic chronic kidney disease; E78.5 Hyperlipidemia, unspecified; M10.9 Gout, unspecified; N40.1 Benign prostatic hyperplasia with lower urinary tract symptoms; R33.9 Retention of urine, unspecified; N13.9 Obstructive and reflux uropathy, unspecified; K21.9 Gastro-esophageal reflux disease without esophagitis; E73.9 Lactose intolerance, unspecified; I12.9 Hypertensive chronic kidney disease with stage 1 through stage 4 chronic kidney disease, or unspecified chronic kidney disease; E83.42 Hypomagnesemia; E11.51 Type 2 diabetes mellitus with diabetic peripheral angiopathy without gangrene; N32.89 Other specified disorders of bladder; Z95.820 Peripheral vascular angioplasty status with implants and grafts; Z79.82 Long term (current) use of aspirin; Z79.02 Long term (current) use of antithrombotics/antiplatelets; Z79.52 Long term (current) use of systemic steroids; Z79.899 Other long term (current) drug therapy; Z87.891 Personal history of nicotine dependence; Z98.41 Cataract extraction status, right eye; Z98.42 Cataract extraction status, left eye; Z88.7 Allergy status to serum and vaccine; Z88.6 Allergy status to analgesic agent; Z79.4 Long term (current) use of insulin; Z86.73 Personal history of transient ischemic attack (TIA), and cerebral infarction without residual deficits

== ENCOUNTER → 2020-05-08 | Outpatient (REF) | payer MEDICARE ==
[~2020-05-08] MED LIST: ACET-907 PO; AMLO1TAB24 PO; ASPI1CHW3 PO; ATOR40TA75 PO; BETA1OI TOP; BIOF4GEL4 TOP; CALC0.009 TOP; CEFD300CAP PO; CLOP75TA2 PO; COUG1LOZ8 MT; GABA600T4 PO; GUAI100L31 PO; INSUDET SC; KETO0.02 OU; LASI40TA9 PO; LEFL1TAB4 PO; LISI-538 PO; LOPE-39 PO; METO1TAB7 PO; MIRA3350 PO; MYLASSUD PO; NYST10006 TOP; OXYB5TAB10 PO; PANT-23 PO; PRED5TA PO; REPA1TAB6 PO; TRIA1OI TOP
[2020-06-11 12:07] LABS: APPEARANCE, URINE CLEAR (CLEAR); BACTERIA, URINE AUTO NEGATIVE (NEGATIVE); BILIRUBIN, URINE AUTO NEGATIVE (NEGATIVE); BLOOD, URINE BLOOD NEGATIVE (NEGATIVE); COLOR, URINE YELLOW (YELLOW); GLUCOSE, URINE (UA) AUTO 3+ mg/dL (NEGATIVE); KETONE, URINE AUTO NEGATIVE (NEGATIVE); LEUKOCYTE ESTERASE, URINE AUTO NEGATIVE (NEGATIVE); NITRITE, URINE AUTO NEGATIVE (NEGATIVE); PROTEIN, URINE AUTO NEGATIVE (NEGATIVE); RBC, URINE AUTO 1 /HPF (0-3); SPECIFIC GRAVITY URINE AUTO 1.008 (1.002-1.035); SQUAMOUS EPITHELIAL CELL UR AU 0 /HPF (0-6); UROBILINOGEN, URINE AUTO 0.2 mg/dL (0.0-2.0); WBC, URINE AUTO 1 /HPF (0-3)
== END ==
LOC: M SMT 08:43
PROVIDERS: ATTEND Nurse Practitioner Family
DX: N39.0 Urinary tract infection, site not specified (principal)

== ENCOUNTER → 2021-08-26 | Outpatient (REF) | payer MEDICARE ==
[~2021-08-26] MED LIST changes: +ACET650T3 PO; +ALBU8.5H INH; +ALBU83IN NEB; +BROV15NE NEB; +FLOM0.4C39 PO; +FURO40TA2 PO; +HUMA100I5 SC; +HYDR10TAB PO; +LEVE1INJ5 SC; -LISI-538 PO; +LISI20TA33 PO; +TOPR100T PO; +TORS20TA2 PO
[2021-08-26 18:15] LABS: PERCENT SATURATION 23.5 % (19.7-50.0)
== END ==
LOC: M LAB REF 17:10
PROVIDERS: ATTEND Internal Medicine Nephrology
DX: D50.9 Iron deficiency anemia, unspecified (principal)

== ENCOUNTER 2021-10-08 08:41 | Inpatient (IN) | payer MEDICARE ==
[~2021-10-08] VITALS: Ht 175.3 cm; Wt 89.9 kg
[~2021-10-08 08:41] MED LIST changes: -ACET650T3 PO; -ALBU8.5H INH; -ALBU83IN NEB; -BROV15NE NEB; -FLOM0.4C39 PO; -FURO40TA2 PO; -HUMA100I5 SC; -HYDR10TAB PO; -LEVE1INJ5 SC; -TOPR100T PO; -TORS20TA2 PO
[2021-10-08] MEDS ORDERED: DEXTROSE 50% 50 ML SYRINGE IV STA (09:40)
[2021-10-08 09:58] LABS: BASO # 0.1 10^3/uL (0.0-0.2); EOS # 0.3 10^3/uL (0.0-0.5); EOS % 3.2 % (0.0-3.0); HEMATOCRIT 31.1 % (42.0-52.0); HEMOGLOBIN 9.5 g/dl (13.5-17.5); LYMPH # 1.3 10^3/uL (1.5-5.0); LYMPH % 14.9 % (24.0-44.0); MEAN CORPUSCULAR HEMOGLOBIN 27.1 pg (27.0-33.0); MEAN CORPUSCULAR HGB CONC 30.5 g/dl (32.0-36.5); MEAN CORPUSCULAR VOLUME 88.6 fl (80.0-96.0); MONO # 0.5 10^3/uL (0.0-0.8); MONO % 5.6 % (2.0-8.0); NEUTROPHILS # 6.4 10^3/uL (1.5-8.5); NEUTROPHILS % 71.9 % (36.0-66.0); PLATELET COUNT, AUTOMATED 330 10^3/uL (150-450); RED BLOOD COUNT 3.51 10^6/uL (4.30-6.10); WHITE BLOOD COUNT 8.8 10^3/uL (4.0-10.0)
[2021-10-08 10:08] LABS: INR 1.05; PROTHROMBIN TIME 14.1 SECONDS (12.7-14.5)
[2021-10-08 10:09] LABS: PARTIAL THROMBOPLASTIN TIME 33.4 SECONDS (25.9-37.0)
[2021-10-08 10:24] LABS: ALBUMIN 2.3 GM/DL (3.2-5.2); ALT/SGPT 39 U/L (12-78); BILIRUBIN,TOTAL 0.3 MG/DL (0.2-1.0); BLOOD UREA NITROGEN 22 MG/DL (7-18); CARBON DIOXIDE LEVEL 27 MEQ/L (21-32); CHLORIDE LEVEL 108 MEQ/L (98-107); CREATININE FOR GFR 1.07 MG/DL (0.70-1.30); GLOMERULAR FILTRATION RATE > 60.0 (>35); GLUCOSE, FASTING 69 MG/DL (70-100); POTASSIUM SERUM 3.9 MEQ/L (3.5-5.1); SODIUM LEVEL 144 MEQ/L (136-145); TOTAL PROTEIN 6.4 GM/DL (6.4-8.2)
[2021-10-08 10:31] LABS: RSV AMPLIFICATION NEGATIVE (NEGATIVE)
[2021-10-08] MEDS ORDERED: CEFTAROLINE FOSAMIL 600 MG in D5W MINI-BAG PLUS 50 ML IV ONE (11:15)
[2021-10-08] MEDS ORDERED: GLUCAGON INJ 1MG VIAL SC PRN (12:15)
[2021-10-08] MEDS ORDERED: GLUCOSE 4GM CHEW TABLET PO PRN (12:15)
[2021-10-08] MEDS ORDERED: DEXTROSE 50% 50 ML SYRINGE IV PRN (12:15)
[2021-10-08] MEDS ORDERED: FUROSEMIDE 40MG/4ML VIAL (J1940) IV ONE (13:00)
[2021-10-08] MEDS ORDERED: ALBU8.5H INH (13:56)
[2021-10-08] MEDS ORDERED: HYDR10TAB PO (13:57)
[2021-10-08] MEDS ORDERED: TORS20TA2 PO (13:57)
[2021-10-08] MEDS ORDERED: LEVE1INJ5 SC (13:59)
[2021-10-08] MEDS ORDERED: TOPR100T PO (14:00)
[2021-10-08] MEDS ORDERED: FURO40TA2 PO (14:02)
[2021-10-08] MEDS ORDERED: FLOM0.4C39 PO (14:06)
[2021-10-08] MEDS ORDERED: ALBU83IN NEB (14:06)
[2021-10-08] MEDS ORDERED: BROV15NE NEB (14:06)
[2021-10-08] MEDS ORDERED: ACET650T3 PO (14:07)
[2021-10-08 14:28] LABS: HEMOGLOBIN A1c 8.7 %
[2021-10-08] MEDS ORDERED: HOME MED LIST COMPLETE! XX SCH (14:30)
[2021-10-08 15:20] VITALS: BP 200/80
[2021-10-08] MEDS ORDERED: MIRALAX *UNIT DOSE* 17GM PACKET PO PRN (15:35)
[2021-10-08] MEDS ORDERED: ACETAMINOPHEN 650MG ER TAB (TYLENOL ARTHRITIS) PO PRN (15:35)
[2021-10-08 15:36] LABS: NT-PRO BNP 839 PG/ML (<450)
[2021-10-08] MEDS ORDERED: **hydrALAZINE** 10 MG TAB PO ONE (15:40)
[2021-10-08] MEDS ORDERED: METOPROLOL SUCC (TopROL XL) 100MG *XL* TAB PO ONE (15:40)
[2021-10-08] MEDS: GABAPENTIN 300 MG CAP PO SCH ×2 (15:48→20:18)
[2021-10-08 16:40] VITALS: BP 166/82
[2021-10-08 19:30] VITALS: BP 160/72
[2021-10-08] MEDS ORDERED: ALBUTEROL SULFATE 2.5 MG/0.5 ML INH NEB SOLN NEB PRN (19:30)
[2021-10-08] MEDS ORDERED: ALBUTEROL SULFATE 2.5 MG/0.5 ML INH NEB SOLN NEB SCH (20:00)
[2021-10-08] MEDS: HumaLOG INSULIN (NovoLOG) PER UNIT SC SCH (20:19)
[2021-10-09] VITALS: BP 163/78
[2021-10-09] MEDS: **hydrALAZINE** 10 MG TAB PO SCH ×4 (00:18→17:52)
[2021-10-09] MEDS: HumaLOG INSULIN (NovoLOG) PER UNIT SC SCH ×6 (00:19→20:28)
[2021-10-09 06:00] VITALS: BP 135/65
[2021-10-09 08:44] LABS: BASO # 0.1 10^3/uL (0.0-0.2); BASO % 0.9 % (0.0-1.0); EOS # 0.3 10^3/uL (0.0-0.5); HEMATOCRIT 32.3 % (42.0-52.0); HEMOGLOBIN 9.7 g/dl (13.5-17.5); LYMPH # 1.3 10^3/uL (1.5-5.0); LYMPH % 15.1 % (24.0-44.0); MEAN CORPUSCULAR HEMOGLOBIN 26.7 pg (27.0-33.0); MONO # 0.5 10^3/uL (0.0-0.8); MONO % 6.4 % (2.0-8.0); NEUTROPHILS # 5.9 10^3/uL (1.5-8.5); NEUTROPHILS % 69.9 % (36.0-66.0); PLATELET COUNT, AUTOMATED 348 10^3/uL (150-450); RED BLOOD COUNT 3.63 10^6/uL (4.30-6.10); WHITE BLOOD COUNT 8.5 10^3/uL (4.0-10.0)
[2021-10-09 09:10] LABS: CALCIUM LEVEL 8.4 MG/DL (8.8-10.2); CREATININE FOR GFR 1.46 MG/DL (0.70-1.30); GLOMERULAR FILTRATION RATE 49.1 (>35); MAGNESIUM LEVEL 1.4 MG/DL (1.8-2.4); PHOSPHORUS LEVEL 3.5 MG/DL (2.5-4.9); POTASSIUM SERUM 4.2 MEQ/L (3.5-5.1)
[2021-10-09] MEDS ORDERED: HUMA100I5 SC (10:29)
[2021-10-09] MEDS: ATORVASTATIN 20 MG TAB PO SCH (10:36)
[2021-10-09] MEDS: GABAPENTIN 300 MG CAP PO SCH ×3 (10:36→20:27)
[2021-10-09] MEDS: METOPROLOL SUCC (TopROL XL) 100MG *XL* TAB PO SCH (10:36)
[2021-10-09] MEDS: ASPIRIN 81 MG CHEW TABLET PO SCH (10:36)
[2021-10-09] MEDS: predniSONE 5 MG TAB PO SCH (10:37)
[2021-10-09] MEDS: amLODIPine 5 MG TAB PO SCH (10:37)
[2021-10-09] MEDS: TAMSULOSIN 0.4 MG CAP PO SCH (10:37)
[2021-10-09] MEDS: TORSEMIDE 20 MG TAB PO SCH (10:37)
[2021-10-09] MEDS: PANTOPRAZOLE 40MG TAB (PROTONIX) PO SCH (10:37)
[2021-10-09] MEDS: ENOXAPARIN 40MG/0.4ML SYRINGE (J1650 PER 10MG) SC SCH (10:38)
[2021-10-09] MEDS: MAG SULF 1GM/100ML (MAG RUN) 1 GM in IV 1 EA IV SCH ×2 (10:50→11:56)
[2021-10-09] MEDS ORDERED: TORSEMIDE 20 MG TAB PO ONE (11:25)
[2021-10-09] MEDS ORDERED: GLUCAGON INJ 1MG VIAL SC PRN (12:15)
[2021-10-09] MEDS ORDERED: GLUCOSE 4GM CHEW TABLET PO PRN (12:15)
[2021-10-09] MEDS ORDERED: DEXTROSE 50% 50 ML SYRINGE IV PRN (12:15)
[2021-10-09 14:00] VITALS: BP 142/55
[2021-10-09 17:51] VITALS: BP 137/61
[2021-10-09] MEDS: LEVEMIR (INSULIN DETEMIR) 1 UNITS/0.01ML SC SCH (20:28)
[2021-10-10] MEDS: **hydrALAZINE** 10 MG TAB PO SCH ×4 (00:24→17:35)
[2021-10-10 05:55] VITALS: BP 159/70
[2021-10-10 07:11] LABS: HEMATOCRIT 26.6 % (42.0-52.0); HEMOGLOBIN 8.1 g/dl (13.5-17.5); MEAN CORPUSCULAR HEMOGLOBIN 27.1 pg (27.0-33.0); MEAN CORPUSCULAR HGB CONC 30.5 g/dl (32.0-36.5); PLATELET COUNT, AUTOMATED 303 10^3/uL (150-450); RED BLOOD COUNT 2.99 10^6/uL (4.30-6.10); WHITE BLOOD COUNT 6.7 10^3/uL (4.0-10.0)
[2021-10-10 07:30] LABS: CALCIUM LEVEL 7.8 MG/DL (8.8-10.2); CREATININE FOR GFR 1.41 MG/DL (0.70-1.30); GLOMERULAR FILTRATION RATE 51.1 (>35); MAGNESIUM LEVEL 1.8 MG/DL (1.8-2.4); PHOSPHORUS LEVEL 3.5 MG/DL (2.5-4.9); POTASSIUM SERUM 3.7 MEQ/L (3.5-5.1)
[2021-10-10] MEDS: TAMSULOSIN 0.4 MG CAP PO SCH (09:33)
[2021-10-10] MEDS: HumaLOG INSULIN (NovoLOG) PER UNIT SC SCH ×4 (09:33→20:36)
[2021-10-10] MEDS: ASPIRIN 81 MG CHEW TABLET PO SCH (09:33)
[2021-10-10] MEDS: predniSONE 5 MG TAB PO SCH (09:33)
[2021-10-10] MEDS: TORSEMIDE 20 MG TAB PO SCH (09:33)
[2021-10-10] MEDS: PANTOPRAZOLE 40MG TAB (PROTONIX) PO SCH (09:33)
[2021-10-10] MEDS: ATORVASTATIN 20 MG TAB PO SCH (09:33)
[2021-10-10] MEDS: GABAPENTIN 300 MG CAP PO SCH ×3 (09:33→20:35)
[2021-10-10] MEDS: ENOXAPARIN 40MG/0.4ML SYRINGE (J1650 PER 10MG) SC SCH (09:34)
[2021-10-10] MEDS: amLODIPine 5 MG TAB PO SCH (09:35)
[2021-10-10] MEDS: METOPROLOL SUCC (TopROL XL) 100MG *XL* TAB PO SCH (09:35)
[2021-10-10] MEDS ORDERED: TORSEMIDE 20 MG TAB PO ONE (11:35)
[2021-10-10] MEDS ORDERED: MAG SULF 1GM/100ML (MAG RUN) 1 GM in IV 1 EA IV ONE (11:40)
[2021-10-10] MEDS ORDERED: POTASSIUM CHLORIDE 10MEQ SR TABLET PO ONE (11:40)
[2021-10-10] MEDS: FUROSEMIDE 40MG/4ML VIAL (J1940) IV SCH ×2 (12:58→20:35)
[2021-10-10] MEDS: LEVEMIR (INSULIN DETEMIR) 1 UNITS/0.01ML SC SCH ×2 (13:03→20:37)
[2021-10-10] MEDS ORDERED: HumaLOG INSULIN (NovoLOG) PER UNIT SC ONE (17:00)
[2021-10-10 22:00] VITALS: BP 143/80
[2021-10-11] MEDS: **hydrALAZINE** 10 MG TAB PO SCH ×4 (00:28→18:08)
[2021-10-11] MEDS: FUROSEMIDE 40MG/4ML VIAL (J1940) IV SCH ×2 (04:24→12:10)
[2021-10-11 06:00] LABS: HEMOGLOBIN 9.3 g/dl (13.5-17.5); MEAN CORPUSCULAR HEMOGLOBIN 26.6 pg (27.0-33.0); MEAN CORPUSCULAR VOLUME 88.6 fl (80.0-96.0); PLATELET COUNT, AUTOMATED 335 10^3/uL (150-450); WHITE BLOOD COUNT 7.7 10^3/uL (4.0-10.0)
[2021-10-11 06:27] LABS: CALCIUM LEVEL 8.4 MG/DL (8.8-10.2); CREATININE FOR GFR 1.55 MG/DL (0.70-1.30); GLOMERULAR FILTRATION RATE 45.8 (>35); MAGNESIUM LEVEL 1.8 MG/DL (1.8-2.4); PHOSPHORUS LEVEL 2.6 MG/DL (2.5-4.9); POTASSIUM SERUM 4.1 MEQ/L (3.5-5.1)
[2021-10-11 06:39] VITALS: BP 142/62
[2021-10-11] MEDS: HumaLOG INSULIN (NovoLOG) PER UNIT SC SCH ×4 (08:24→20:17)
[2021-10-11] MEDS: GABAPENTIN 300 MG CAP PO SCH ×3 (08:25→20:18)
[2021-10-11] MEDS: PANTOPRAZOLE 40MG TAB (PROTONIX) PO SCH (08:25)
[2021-10-11] MEDS: LEVEMIR (INSULIN DETEMIR) 1 UNITS/0.01ML SC SCH (08:25)
[2021-10-11] MEDS: TAMSULOSIN 0.4 MG CAP PO SCH (08:25)
[2021-10-11] MEDS: ASPIRIN 81 MG CHEW TABLET PO SCH (08:26)
[2021-10-11] MEDS: amLODIPine 5 MG TAB PO SCH (08:26)
[2021-10-11] MEDS: ENOXAPARIN 40MG/0.4ML SYRINGE (J1650 PER 10MG) SC SCH (08:26)
[2021-10-11] MEDS: ATORVASTATIN 20 MG TAB PO SCH (08:26)
[2021-10-11] MEDS: predniSONE 5 MG TAB PO SCH (08:26)
[2021-10-11] MEDS: METOPROLOL SUCC (TopROL XL) 100MG *XL* TAB PO SCH (08:27)
[2021-10-11] MEDS ORDERED: TORSEMIDE 20 MG TAB PO SCH (09:00)
[2021-10-11 12:15] VITALS: BP 161/71
[2021-10-11 14:00] VITALS: BP 125/63
[2021-10-11] MEDS ORDERED: LEVEMIR (INSULIN DETEMIR) 1 UNITS/0.01ML SC SCH (21:00)
[2021-10-11 22:00] VITALS: BP 157/69
[2021-10-12] MEDS: **hydrALAZINE** 10 MG TAB PO SCH ×5 (01:14→23:50)
[2021-10-12 06:27] VITALS: BP 149/73
[2021-10-12 06:45] LABS: CALCIUM LEVEL 8.4 MG/DL (8.8-10.2); CREATININE FOR GFR 1.46 MG/DL (0.70-1.30); GLOMERULAR FILTRATION RATE 49.1 (>35); MAGNESIUM LEVEL 1.7 MG/DL (1.8-2.4); PHOSPHORUS LEVEL 2.8 MG/DL (2.5-4.9); POTASSIUM SERUM 3.6 MEQ/L (3.5-5.1)
[2021-10-12] MEDS: HumaLOG INSULIN (NovoLOG) PER UNIT SC SCH ×4 (07:15→20:12)
[2021-10-12] MEDS: predniSONE 5 MG TAB PO SCH (08:37)
[2021-10-12] MEDS: ASPIRIN 81 MG CHEW TABLET PO SCH (08:38)
[2021-10-12] MEDS: TORSEMIDE 20 MG TAB PO SCH (08:38)
[2021-10-12] MEDS: amLODIPine 5 MG TAB PO SCH (08:38)
[2021-10-12] MEDS: ATORVASTATIN 20 MG TAB PO SCH (08:38)
[2021-10-12] MEDS: TAMSULOSIN 0.4 MG CAP PO SCH (08:38)
[2021-10-12] MEDS: GABAPENTIN 300 MG CAP PO SCH ×3 (08:38→20:11)
[2021-10-12] MEDS: PANTOPRAZOLE 40MG TAB (PROTONIX) PO SCH (08:39)
[2021-10-12] MEDS: METOPROLOL SUCC (TopROL XL) 100MG *XL* TAB PO SCH (08:39)
[2021-10-12] MEDS: ENOXAPARIN 40MG/0.4ML SYRINGE (J1650 PER 10MG) SC SCH (08:40)
[2021-10-12] MEDS ORDERED: LEVEMIR (INSULIN DETEMIR) 1 UNITS/0.01ML SC SCH ×3 (09:00→21:00)
[2021-10-12 14:00] VITALS: BP 137/58
[2021-10-12 22:00] VITALS: BP 155/69
[2021-10-13] MEDS: **hydrALAZINE** 10 MG TAB PO SCH (05:13)
[2021-10-13 06:00] VITALS: BP 160/74
[2021-10-13 06:54] LABS: CALCIUM LEVEL 8.6 MG/DL (8.8-10.2); CREATININE FOR GFR 1.29 MG/DL (0.70-1.30); GLOMERULAR FILTRATION RATE 56.6 (>35); MAGNESIUM LEVEL 1.5 MG/DL (1.8-2.4); PHOSPHORUS LEVEL 3.3 MG/DL (2.5-4.9); POTASSIUM SERUM 3.7 MEQ/L (3.5-5.1)
[2021-10-13] MEDS ORDERED: INSUDET SC ×2 (08:05)
[2021-10-13] MEDS: ASPIRIN 81 MG CHEW TABLET PO SCH (08:52)
[2021-10-13] MEDS: ENOXAPARIN 40MG/0.4ML SYRINGE (J1650 PER 10MG) SC SCH (08:52)
[2021-10-13] MEDS: HumaLOG INSULIN (NovoLOG) PER UNIT SC SCH (08:52)
[2021-10-13] MEDS: TORSEMIDE 20 MG TAB PO SCH (08:53)
[2021-10-13] MEDS: TAMSULOSIN 0.4 MG CAP PO SCH (08:54)
[2021-10-13] MEDS: predniSONE 5 MG TAB PO SCH (08:54)
[2021-10-13] MEDS: ATORVASTATIN 20 MG TAB PO SCH (08:54)
[2021-10-13] MEDS: PANTOPRAZOLE 40MG TAB (PROTONIX) PO SCH (08:54)
[2021-10-13] MEDS: GABAPENTIN 300 MG CAP PO SCH (08:54)
[2021-10-13 08:55] VITALS: BP 142/78
[2021-10-13] MEDS: amLODIPine 5 MG TAB PO SCH (08:55)
[2021-10-13] MEDS: METOPROLOL SUCC (TopROL XL) 100MG *XL* TAB PO SCH (08:55)
[2021-10-13] MEDS ORDERED: LEVEMIR (INSULIN DETEMIR) 1 UNITS/0.01ML SC SCH ×2 (09:00→21:00)
== END 2021-10-13 11:55 | DRG 637 ==
LOC: EDBD 08:41 → M ED 08:41 → M ED INP 12:09 → M MSPAV 15:20 → OBSVTOIN 10-12 09:35
PROVIDERS: ADMIT Internal Medicine; ATTEND Internal Medicine
DX: E11.649 Type 2 diabetes mellitus with hypoglycemia without coma (principal); I50.33 Acute on chronic diastolic (congestive) heart failure; I13.0 Hypertensive heart and chronic kidney disease with heart failure and stage 1 through stage 4 chronic kidney disease, or unspecified chronic kidney disease; Z86.16 Personal history of COVID-19; I73.9 Peripheral vascular disease, unspecified; M06.9 Rheumatoid arthritis, unspecified; I25.10 Atherosclerotic heart disease of native coronary artery without angina pectoris; I25.2 Old myocardial infarction; E11.42 Type 2 diabetes mellitus with diabetic polyneuropathy; J44.9 Chronic obstructive pulmonary disease, unspecified; N18.30 Chronic kidney disease, stage 3 unspecified; Z86.73 Personal history of transient ischemic attack (TIA), and cerebral infarction without residual deficits; E78.5 Hyperlipidemia, unspecified; M10.9 Gout, unspecified; N40.1 Benign prostatic hyperplasia with lower urinary tract symptoms; K21.9 Gastro-esophageal reflux disease without esophagitis; Z87.891 Personal history of nicotine dependence; Z79.82 Long term (current) use of aspirin; Z79.4 Long term (current) use of insulin; Z79.84 Long term (current) use of oral hypoglycemic drugs; Z79.899 Other long term (current) drug therapy; Z88.8 Allergy status to other drugs, medicaments and biological substances; Z88.7 Allergy status to serum and vaccine; Z91.011 Allergy to milk products; Z66 Do not resuscitate; Z20.822 Contact with and (suspected) exposure to COVID-19

== ENCOUNTER 2021-12-14 23:31 | Inpatient (IN) | payer MEDICARE ==
[~2021-12-14] VITALS: Ht 175.3 cm; Wt 85.5 kg
[~2021-12-14 23:31] MED LIST changes: +ACET650T3 PO; +ALBU8.5H INH; +ALBU83IN NEB; +BROV15NE NEB; +FLOM0.4C39 PO; +FURO40TA2 PO; +HUMA100I5 SC; +HYDR10TAB PO; +LEVE1INJ5 SC; +TOPR100T PO; +TORS20TA2 PO
[2021-12-15] VITALS (12 sets, daily range): BP systolic 117–169; BP diastolic 58–79
[2021-12-15] MEDS ORDERED: ALBUTEROL SULFATE 2.5 MG/0.5 ML INH NEB SOLN NEB PRN (01:45)
[2021-12-15] MEDS ORDERED: GLUCAGON INJ 1MG VIAL SC PRN (01:45)
[2021-12-15] MEDS ORDERED: GLUCOSE 4GM CHEW TABLET PO PRN (01:45)
[2021-12-15] MEDS ORDERED: PIPERACILLIN/TAZOBACTAM SOD 4.5 GM in D5W MINI-BAG PLUS 50 ML IV SCH (01:45)
[2021-12-15] MEDS ORDERED: DEXTROSE 50% 50 ML SYRINGE IV PRN (01:45)
[2021-12-15] MEDS ORDERED: ACETAMINOPHEN 650 MG SUPP PR PRN (02:10)
[2021-12-15] MEDS ORDERED: ACETAMINOPHEN *IV* 1,000 MG in IV 1 EA IV ONE (02:15)
[2021-12-15] MEDS: HumaLOG INSULIN (NovoLOG) PER UNIT SC SCH ×4 (02:51→17:16)
[2021-12-15] MEDS ORDERED: FURO40TA2 PO (02:55)
[2021-12-15] MEDS ORDERED: ASPI-161 PO (02:55)
[2021-12-15] MEDS ORDERED: INSUDET SC (02:55)
[2021-12-15] MEDS ORDERED: FLOM0.4C39 PO (02:55)
[2021-12-15] MEDS ORDERED: VITA200021 PO (02:55)
[2021-12-15] MEDS ORDERED: OXYB10TA23 PO (02:57)
[2021-12-15] MEDS ORDERED: PATIENT COMMENT (02:58)
[2021-12-15] MEDS ORDERED: HOME MED LIST COMPLETE! XX SCH (03:00)
[2021-12-15 03:09] LABS: BASO % 0.2 % (0.0-1.0); EOS # 0.1 10^3/uL (0.0-0.5); EOS % 0.3 % (0.0-3.0); HEMATOCRIT 34.4 % (42.0-52.0); HEMOGLOBIN 10.7 g/dl (13.5-17.5); LYMPH # 0.2 10^3/uL (1.5-5.0); MEAN CORPUSCULAR HEMOGLOBIN 26.2 pg (27.0-33.0); MEAN CORPUSCULAR HGB CONC 31.1 g/dl (32.0-36.5); MEAN CORPUSCULAR VOLUME 84.1 fl (80.0-96.0); MONO # 0.4 10^3/uL (0.0-0.8); NEUTROPHILS # 17.5 10^3/uL (1.5-8.5); NEUTROPHILS % 95.4 % (36.0-66.0); PLATELET COUNT, AUTOMATED 215 10^3/uL (150-450); RED BLOOD COUNT 4.09 10^6/uL (4.30-6.10); WHITE BLOOD COUNT 18.4 10^3/uL (4.0-10.0)
[2021-12-15 03:20] LABS: ALBUMIN 2.7 GM/DL (3.2-5.2); BILIRUBIN,TOTAL 0.3 MG/DL (0.2-1.0); CALCIUM LEVEL 8.3 MG/DL (8.8-10.2); CREATININE FOR GFR 2.67 MG/DL (0.70-1.30); GLOMERULAR FILTRATION RATE 24.4 (>35); MAGNESIUM LEVEL 1.5 MG/DL (1.8-2.4); PHOSPHORUS LEVEL 4.3 MG/DL (2.5-4.9); POTASSIUM SERUM 4.7 MEQ/L (3.5-5.1); TOTAL PROTEIN 6.3 GM/DL (6.4-8.2)
[2021-12-15] MEDS ORDERED: VANCOMYCIN HCL 750 MG, VIAL MATE ADAPTER 1 EACH in NS 250 ML IV SCH (03:20)
[2021-12-15 03:27] LABS: ABG BASE EXCESS -2.5 (-2.0-2.0); ABG HCO3 21.8 MEQ/L (22.0-26.0); ABG O2 SATURATION 95.6 % (95.0-99.0); ABG PARTIAL PRESSURE CO2 35.7 mmHg (35.0-45.0); ABG PARTIAL PRESSURE O2 90.6 mmHg (75.0-100.0); ABG STANDARD HCO3 22.3 MEQ/L (22.0-26.0); ABG TOTAL CO2 22.9 MEQ/L (23.0-31.0); ABG pH (ARTERIAL) 7.403 UNITS (7.350-7.450)
[2021-12-15 03:52] LABS: RSV AMPLIFICATION NEGATIVE (NEGATIVE)
[2021-12-15] MEDS: IPRATROPIUM 0.5MG/ALBUTEROL 2.5MG INH SOL UD 3ML (DUONEB) NEB SCH ×2 (03:55→09:05)
[2021-12-15] MEDS ORDERED: PIPERACILLIN/TAZOBACTAM SOD 3.375 GM in D5W MINI-BAG PLUS 50 ML IV SCH (05:00)
[2021-12-15] MEDS: PIPERACILLIN/TAZOBACTAM SOD 3.375 GM in D5W MINI-BAG PLUS 50 ML IV SCH ×3 (05:22→17:25)
[2021-12-15] MEDS ORDERED: MAG SULF 1GM/100ML (MAG RUN) 1 GM in IV 1 EA IV ONE (08:00)
[2021-12-15] MEDS ORDERED: ENOXAPARIN 40MG/0.4ML SYRINGE (J1650 PER 10MG) SC SCH (09:00)
[2021-12-15] MEDS ORDERED: FUROSEMIDE 40MG/4ML VIAL (J1940) IV SCH (09:00)
[2021-12-15] MEDS ORDERED: REMDESIVIR 200 MG in NS 250 ML IV ONE (09:00)
[2021-12-15] MEDS ORDERED: HEPARIN SOD (PORCINE) 5000UNITS/ML 1ML VIAL/SYRINGE SQ SCH (09:00)
[2021-12-15] MEDS: dexameTHASONE 20MG/5ML VIAL (J1100 PER 1MG) IV SCH (09:41)
[2021-12-15] MEDS: PANTOPRAZOLE 40MG VIAL IV SCH (09:41)
[2021-12-15] MEDS: ENOXAPARIN 40MG/0.4ML SYRINGE (J1650 PER 10MG) SC SCH ×2 (09:42→21:53)
[2021-12-15] MEDS: NS 1,000 ML IV SCH (09:47)
[2021-12-15 09:51] LABS: BASO % 0.2 % (0.0-1.0); HEMATOCRIT 32.4 % (42.0-52.0); HEMOGLOBIN 10.1 g/dl (13.5-17.5); LYMPH # 0.2 10^3/uL (1.5-5.0); MEAN CORPUSCULAR HEMOGLOBIN 26.2 pg (27.0-33.0); MEAN CORPUSCULAR HGB CONC 31.2 g/dl (32.0-36.5); MEAN CORPUSCULAR VOLUME 83.9 fl (80.0-96.0); MONO # 0.3 10^3/uL (0.0-0.8); MONO % 1.9 % (2.0-8.0); NEUTROPHILS # 15.8 10^3/uL (1.5-8.5); NEUTROPHILS % 96.1 % (36.0-66.0); PLATELET COUNT, AUTOMATED 192 10^3/uL (150-450); RED BLOOD COUNT 3.86 10^6/uL (4.30-6.10); WHITE BLOOD COUNT 16.4 10^3/uL (4.0-10.0)
[2021-12-15] MEDS ORDERED: SODIUM CHLORIDE 0.9% INJ 10 ML SYR IV ONE (10:00)
[2021-12-15 10:14] LABS: ALBUMIN 2.6 GM/DL (3.2-5.2); BILIRUBIN,DIRECT 0.1 MG/DL (0.0-0.2); BILIRUBIN,TOTAL 0.3 MG/DL (0.2-1.0); CALCIUM LEVEL 8.4 MG/DL (8.8-10.2); CREATININE FOR GFR 3.01 MG/DL (0.70-1.30); GLOMERULAR FILTRATION RATE 21.2 (>35); MAGNESIUM LEVEL 1.9 MG/DL (1.8-2.4); POTASSIUM SERUM 4.7 MEQ/L (3.5-5.1); TOTAL PROTEIN 5.9 GM/DL (6.4-8.2)
[2021-12-15] MEDS: COMBIVENT RESPIMAT 100-20MCG INHALER 4GM INH SCH ×3 (13:15→20:07)
[2021-12-15] MEDS ORDERED: BETAMETHASONE VAL 0.1% OINT 15 GM TOP PRN (20:20)
[2021-12-15] MEDS ORDERED: HumaLOG INSULIN (NovoLOG) PER UNIT SC SCH (21:00)
[2021-12-15] MEDS: LEVEMIR (INSULIN DETEMIR) 1 UNITS/0.01ML SC SCH (21:53)
[2021-12-15 22:24] LABS: HEMOGLOBIN A1c 9.5 %
[2021-12-16] VITALS (22 sets, daily range): BP systolic 159–250; BP diastolic 72–114
[2021-12-16] MEDS: PIPERACILLIN/TAZOBACTAM SOD 3.375 GM in D5W MINI-BAG PLUS 50 ML IV SCH ×5 (00:39→23:13)
[2021-12-16] MEDS: NS 1,000 ML IV SCH (00:41)
[2021-12-16] MEDS: COMBIVENT RESPIMAT 100-20MCG INHALER 4GM INH SCH ×4 (03:20→11:25)
[2021-12-16 06:34] LABS: BASO % 0.2 % (0.0-1.0); EOS % 0.1 % (0.0-3.0); HEMATOCRIT 33.2 % (42.0-52.0); HEMOGLOBIN 10.3 g/dl (13.5-17.5); LYMPH # 0.3 10^3/uL (1.5-5.0); LYMPH % 2.6 % (24.0-44.0); MEAN CORPUSCULAR HEMOGLOBIN 25.9 pg (27.0-33.0); MEAN CORPUSCULAR VOLUME 83.4 fl (80.0-96.0); MONO # 0.4 10^3/uL (0.0-0.8); MONO % 3.3 % (2.0-8.0); NEUTROPHILS # 12.3 10^3/uL (1.5-8.5); NEUTROPHILS % 93.1 % (36.0-66.0); PLATELET COUNT, AUTOMATED 187 10^3/uL (150-450); RED BLOOD COUNT 3.98 10^6/uL (4.30-6.10); WHITE BLOOD COUNT 13.2 10^3/uL (4.0-10.0)
[2021-12-16 07:00] LABS: BLOOD UREA NITROGEN 59 MG/DL (7-18); CARBON DIOXIDE LEVEL 20 MEQ/L (21-32); CHLORIDE LEVEL 105 MEQ/L (98-107); CREATININE FOR GFR 2.17 MG/DL (0.70-1.30); GLUCOSE, FASTING 245 MG/DL (70-100); POTASSIUM SERUM 3.7 MEQ/L (3.5-5.1); SODIUM LEVEL 137 MEQ/L (136-145)
[2021-12-16 07:01] LABS: ALBUMIN 2.5 GM/DL (3.2-5.2); ALT/SGPT 55 U/L (12-78); BILIRUBIN,DIRECT < 0.1 MG/DL (0.0-0.2); BILIRUBIN,TOTAL 0.2 MG/DL (0.2-1.0); CALCIUM LEVEL 8.3 MG/DL (8.8-10.2); MAGNESIUM LEVEL 2.1 MG/DL (1.8-2.4); TOTAL PROTEIN 6.7 GM/DL (6.4-8.2)
[2021-12-16] MEDS ORDERED: HumaLOG INSULIN (NovoLOG) PER UNIT SC SCH (07:30)
[2021-12-16] MEDS ORDERED: SALMETEROL DISKUS 50MCG INHALER (SEREVENT) INH SCH ×2 (08:00→09:00)
[2021-12-16] MEDS ORDERED: amLODIPine 5 MG TAB PO SCH (09:00)
[2021-12-16] MEDS: dexameTHASONE 20MG/5ML VIAL (J1100 PER 1MG) IV SCH (09:20)
[2021-12-16] MEDS: ENOXAPARIN 40MG/0.4ML SYRINGE (J1650 PER 10MG) SC SCH ×2 (09:21→20:42)
[2021-12-16] MEDS: PANTOPRAZOLE 40MG VIAL IV SCH (09:21)
[2021-12-16] MEDS: REMDESIVIR 100 MG in NS 250 ML IV SCH (09:21)
[2021-12-16] MEDS: ATORVASTATIN 20 MG TAB PO SCH (09:22)
[2021-12-16] MEDS: ASPIRIN 81MG ENTERIC TABLET PO SCH (09:22)
[2021-12-16] MEDS: TAMSULOSIN 0.4 MG CAP PO SCH (09:22)
[2021-12-16] MEDS: oxyBUTYnin *DITROPAN XL* 5 MG TABCR PO SCH (09:23)
[2021-12-16] MEDS: METOPROLOL SUCC (TopROL XL) 100MG *XL* TAB PO SCH (09:23)
[2021-12-16] MEDS: guaiFENesin ER 600 MG TAB PO SCH ×2 (10:24→20:43)
[2021-12-16] MEDS: SODIUM CHLORIDE 0.9% INJ 10 ML SYR IV SCH (10:25)
[2021-12-16 11:42] LABS: ABG BASE EXCESS -3.1 (-2.0-2.0); ABG O2 SATURATION 93.7 % (95.0-99.0); ABG PARTIAL PRESSURE CO2 29.8 mmHg (35.0-45.0); ABG PARTIAL PRESSURE O2 73.3 mmHg (75.0-100.0); ABG STANDARD HCO3 21.8 MEQ/L (22.0-26.0); ABG TOTAL CO2 20.9 MEQ/L (23.0-31.0); ABG pH (ARTERIAL) 7.445 UNITS (7.350-7.450)
[2021-12-16] MEDS ORDERED: LABETALOL 100MG/20ML VIAL IV ONE (11:55)
[2021-12-16] MEDS: HumaLOG INSULIN (NovoLOG) PER UNIT SC SCH ×2 (12:27→18:08)
[2021-12-16] MEDS ORDERED: IPRATROPIUM 0.5MG/ALBUTEROL 2.5MG INH SOL UD 3ML (DUONEB) NEB PRN (13:00)
[2021-12-16] MEDS: IPRATROPIUM 0.5MG/ALBUTEROL 2.5MG INH SOL UD 3ML (DUONEB) NEB SCH (17:44)
[2021-12-16] MEDS: LABETALOL 100MG/20ML VIAL IV PRN (18:09)
[2021-12-16] MEDS: amLODIPine 5 MG TAB PO SCH (20:43)
[2021-12-16] MEDS: LEVEMIR (INSULIN DETEMIR) 1 UNITS/0.01ML SC SCH (20:43)
[2021-12-17] VITALS (14 sets, daily range): BP systolic 155–210; BP diastolic 71–94; O2SAT 95–96
[2021-12-17] MEDS: HumaLOG INSULIN (NovoLOG) PER UNIT SC SCH ×5 (00:13→20:32)
[2021-12-17] MEDS: LABETALOL 100MG/20ML VIAL IV PRN ×3 (00:13→16:20)
[2021-12-17] MEDS: amLODIPine 5 MG TAB PO SCH ×2 (04:43→20:32)
[2021-12-17] MEDS: PIPERACILLIN/TAZOBACTAM SOD 3.375 GM in D5W MINI-BAG PLUS 50 ML IV SCH ×4 (04:48→23:25)
[2021-12-17 06:19] LABS: BASO % 0.2 % (0.0-1.0); EOS % 0.1 % (0.0-3.0); HEMATOCRIT 32.8 % (42.0-52.0); HEMOGLOBIN 10.2 g/dl (13.5-17.5); LYMPH # 0.5 10^3/uL (1.5-5.0); MEAN CORPUSCULAR HEMOGLOBIN 25.6 pg (27.0-33.0); MEAN CORPUSCULAR HGB CONC 31.1 g/dl (32.0-36.5); MEAN CORPUSCULAR VOLUME 82.2 fl (80.0-96.0); MONO # 0.3 10^3/uL (0.0-0.8); MONO % 3.5 % (2.0-8.0); NEUTROPHILS # 8.9 10^3/uL (1.5-8.5); NEUTROPHILS % 90.8 % (36.0-66.0); PLATELET COUNT, AUTOMATED 173 10^3/uL (150-450); RED BLOOD COUNT 3.99 10^6/uL (4.30-6.10); WHITE BLOOD COUNT 9.8 10^3/uL (4.0-10.0)
[2021-12-17] MEDS: **hydrALAZINE** 10 MG TAB PO SCH ×4 (06:23→20:32)
[2021-12-17 06:57] LABS: ALBUMIN 2.5 GM/DL (3.2-5.2); BILIRUBIN,DIRECT 0.1 MG/DL (0.0-0.2); BILIRUBIN,TOTAL 0.4 MG/DL (0.2-1.0); CALCIUM LEVEL 8.7 MG/DL (8.8-10.2); CREATININE FOR GFR 1.47 MG/DL (0.70-1.30); GLOMERULAR FILTRATION RATE 48.6 (>35); MAGNESIUM LEVEL 2.2 MG/DL (1.8-2.4); POTASSIUM SERUM 3.5 MEQ/L (3.5-5.1); TOTAL PROTEIN 6.6 GM/DL (6.4-8.2)
[2021-12-17] MEDS ORDERED: hydrALAZINE 20MG/ML 1ML VIAL (J0360 PER 20MG) IV ONE (07:00)
[2021-12-17] MEDS ORDERED: FUROSEMIDE 40MG/4ML VIAL (J1940) IV ONE (07:45)
[2021-12-17] MEDS: IPRATROPIUM 0.5MG/ALBUTEROL 2.5MG INH SOL UD 3ML (DUONEB) NEB SCH ×5 (08:00→23:37)
[2021-12-17] MEDS: ENOXAPARIN 40MG/0.4ML SYRINGE (J1650 PER 10MG) SC SCH ×2 (08:20→20:32)
[2021-12-17] MEDS: ATORVASTATIN 20 MG TAB PO SCH (08:20)
[2021-12-17] MEDS: dexameTHASONE 20MG/5ML VIAL (J1100 PER 1MG) IV SCH (08:21)
[2021-12-17] MEDS: METOPROLOL SUCC (TopROL XL) 100MG *XL* TAB PO SCH (08:21)
[2021-12-17] MEDS: TAMSULOSIN 0.4 MG CAP PO SCH (08:21)
[2021-12-17] MEDS: ASPIRIN 81MG ENTERIC TABLET PO SCH (08:21)
[2021-12-17] MEDS: oxyBUTYnin *DITROPAN XL* 5 MG TABCR PO SCH (08:21)
[2021-12-17] MEDS: PANTOPRAZOLE 40MG VIAL IV SCH (08:21)
[2021-12-17] MEDS: REMDESIVIR 100 MG in NS 250 ML IV SCH (08:22)
[2021-12-17] MEDS: guaiFENesin ER 600 MG TAB PO SCH ×2 (08:22→20:33)
[2021-12-17] MEDS: SODIUM CHLORIDE 0.9% INJ 10 ML SYR IV SCH (09:45)
[2021-12-17] MEDS ORDERED: LOPERAMIDE 2 MG CAPLET PO ONE (13:00)
[2021-12-17] MEDS: LEVEMIR (INSULIN DETEMIR) 1 UNITS/0.01ML SC SCH (20:31)
[2021-12-17] MEDS: GABAPENTIN 100 MG CAP PO SCH (20:32)
[2021-12-17] MEDS ORDERED: GABAPENTIN 300 MG CAP PO SCH (21:00)
[2021-12-18] VITALS: BP 155/70; O2SAT 94
[2021-12-18 04:00] VITALS: BP 176/84; O2SAT 96
[2021-12-18] MEDS: IPRATROPIUM 0.5MG/ALBUTEROL 2.5MG INH SOL UD 3ML (DUONEB) NEB SCH ×4 (04:29→21:39)
[2021-12-18] MEDS: PIPERACILLIN/TAZOBACTAM SOD 3.375 GM in D5W MINI-BAG PLUS 50 ML IV SCH (04:52)
[2021-12-18 07:28] LABS: HEMATOCRIT 33.5 % (42.0-52.0); HEMOGLOBIN 10.3 g/dl (13.5-17.5); MEAN CORPUSCULAR HEMOGLOBIN 25.3 pg (27.0-33.0); MEAN CORPUSCULAR HGB CONC 30.7 g/dl (32.0-36.5); MEAN CORPUSCULAR VOLUME 82.3 fl (80.0-96.0); PLATELET COUNT, AUTOMATED 167 10^3/uL (150-450); RED BLOOD COUNT 4.07 10^6/uL (4.30-6.10); WHITE BLOOD COUNT 4.8 10^3/uL (4.0-10.0)
[2021-12-18 07:51] LABS: ALBUMIN 2.6 GM/DL (3.2-5.2); BILIRUBIN,DIRECT 0.1 MG/DL (0.0-0.2); BILIRUBIN,TOTAL 0.4 MG/DL (0.2-1.0); CALCIUM LEVEL 8.4 MG/DL (8.8-10.2); CREATININE FOR GFR 1.46 MG/DL (0.70-1.30); POTASSIUM SERUM 3.7 MEQ/L (3.5-5.1)
[2021-12-18 08:01] LABS: EOSINOPHILS 1 % (0-3); LYMPHOCYTES 32 % (16-44); MONOCYTES 5 % (0-5); NEUTROPHILS 60 % (28-66); PLATELET ESTIMATE NORMAL (NORMAL)
[2021-12-18] MEDS: LACTOBACILLUS ACIDOPHILUS CAP (BACID) PO SCH (09:00)
[2021-12-18] MEDS: oxyBUTYnin *DITROPAN XL* 5 MG TABCR PO SCH (09:46)
[2021-12-18] MEDS: guaiFENesin ER 600 MG TAB PO SCH ×2 (09:47→21:40)
[2021-12-18] MEDS: amLODIPine 5 MG TAB PO SCH ×2 (09:47→21:45)
[2021-12-18] MEDS: **hydrALAZINE** 10 MG TAB PO SCH ×4 (09:47→21:45)
[2021-12-18] MEDS: TAMSULOSIN 0.4 MG CAP PO SCH (09:47)
[2021-12-18] MEDS: METOPROLOL SUCC (TopROL XL) 100MG *XL* TAB PO SCH (09:47)
[2021-12-18] MEDS: ASPIRIN 81MG ENTERIC TABLET PO SCH (09:47)
[2021-12-18] MEDS: GABAPENTIN 100 MG CAP PO SCH ×3 (09:47→21:40)
[2021-12-18] MEDS: PANTOPRAZOLE 40MG VIAL IV SCH (09:48)
[2021-12-18] MEDS: ENOXAPARIN 40MG/0.4ML SYRINGE (J1650 PER 10MG) SC SCH ×2 (09:48→21:46)
[2021-12-18] MEDS: HumaLOG INSULIN (NovoLOG) PER UNIT SC SCH ×4 (09:48→21:47)
[2021-12-18] MEDS: dexameTHASONE 20MG/5ML VIAL (J1100 PER 1MG) IV SCH (09:48)
[2021-12-18] MEDS: SODIUM CHLORIDE 0.9% INJ 10 ML SYR IV SCH (09:49)
[2021-12-18] MEDS: REMDESIVIR 100 MG in NS 250 ML IV SCH (09:49)
[2021-12-18] MEDS: ATORVASTATIN 20 MG TAB PO SCH (09:49)
[2021-12-18] MEDS ORDERED: predniSONE 20 MG TAB PO ONE (10:50)
[2021-12-18 12:00] VITALS: BP 149/70
[2021-12-18] MEDS: AUGMENTIN 875 MG TAB PO SCH ×2 (12:32→21:40)
[2021-12-18] MEDS: FUROSEMIDE 40 MG TAB PO SCH (12:33)
[2021-12-18 13:31] VITALS: O2SAT 94
[2021-12-18 16:00] VITALS: BP 174/87
[2021-12-18 20:00] VITALS: BP 166/75; O2SAT 97
[2021-12-18] MEDS: LEVEMIR (INSULIN DETEMIR) 1 UNITS/0.01ML SC SCH (21:46)
[2021-12-19] VITALS (12 sets, daily range): BP systolic 146–189; BP diastolic 62–86; O2SAT 93–95
[2021-12-19] MEDS: IPRATROPIUM 0.5MG/ALBUTEROL 2.5MG INH SOL UD 3ML (DUONEB) NEB SCH ×6 (01:10→20:26)
[2021-12-19] MEDS: LABETALOL 100MG/20ML VIAL IV PRN ×2 (04:33→23:41)
[2021-12-19 06:42] LABS: HEMATOCRIT 35.3 % (42.0-52.0); MEAN CORPUSCULAR HEMOGLOBIN 25.5 pg (27.0-33.0); MEAN CORPUSCULAR HGB CONC 31.2 g/dl (32.0-36.5); MEAN CORPUSCULAR VOLUME 81.9 fl (80.0-96.0); PLATELET COUNT, AUTOMATED 196 10^3/uL (150-450); RED BLOOD COUNT 4.31 10^6/uL (4.30-6.10); WHITE BLOOD COUNT 6.4 10^3/uL (4.0-10.0)
[2021-12-19 06:55] LABS: ATYPICAL LYMPH 2 % (0-5); LYMPHOCYTES 18 % (16-44); MONOCYTES 4 % (0-5); MYELOCYTES 1 % (0-0); NEUTROPHILS 75 % (28-66)
[2021-12-19 06:56] LABS: ANISOCYTOSIS 1+; PLATELET ESTIMATE NORMAL (NORMAL); POIKILOCYTOSIS 1+
[2021-12-19 07:12] LABS: ALBUMIN 2.8 GM/DL (3.2-5.2); BILIRUBIN,DIRECT 0.1 MG/DL (0.0-0.2); BILIRUBIN,TOTAL 0.3 MG/DL (0.2-1.0); CALCIUM LEVEL 8.4 MG/DL (8.8-10.2); CREATININE FOR GFR 1.45 MG/DL (0.70-1.30); GLOMERULAR FILTRATION RATE 49.4 (>35); POTASSIUM SERUM 3.7 MEQ/L (3.5-5.1); TOTAL PROTEIN 6.6 GM/DL (6.4-8.2)
[2021-12-19] MEDS: ENOXAPARIN 40MG/0.4ML SYRINGE (J1650 PER 10MG) SC SCH ×2 (08:50→21:13)
[2021-12-19] MEDS: SODIUM CHLORIDE 0.9% INJ 10 ML SYR IV SCH (08:50)
[2021-12-19] MEDS: REMDESIVIR 100 MG in NS 250 ML IV SCH (08:50)
[2021-12-19] MEDS: GABAPENTIN 100 MG CAP PO SCH ×3 (08:51→21:12)
[2021-12-19] MEDS: PANTOPRAZOLE 40MG VIAL IV SCH (08:51)
[2021-12-19] MEDS: HumaLOG INSULIN (NovoLOG) PER UNIT SC SCH ×4 (08:51→21:10)
[2021-12-19] MEDS: amLODIPine 5 MG TAB PO SCH ×2 (08:51→21:12)
[2021-12-19] MEDS: METOPROLOL SUCC (TopROL XL) 100MG *XL* TAB PO SCH (08:52)
[2021-12-19] MEDS: ASPIRIN 81MG ENTERIC TABLET PO SCH (08:52)
[2021-12-19] MEDS: predniSONE 20 MG TAB PO SCH (08:52)
[2021-12-19] MEDS: guaiFENesin ER 600 MG TAB PO SCH ×2 (08:52→21:12)
[2021-12-19] MEDS: AUGMENTIN 875 MG TAB PO SCH ×2 (08:52→21:12)
[2021-12-19] MEDS: FUROSEMIDE 40 MG TAB PO SCH (08:52)
[2021-12-19] MEDS: ATORVASTATIN 20 MG TAB PO SCH (08:52)
[2021-12-19] MEDS: oxyBUTYnin *DITROPAN XL* 5 MG TABCR PO SCH (08:52)
[2021-12-19] MEDS: LACTOBACILLUS ACIDOPHILUS CAP (BACID) PO SCH (08:53)
[2021-12-19] MEDS: TAMSULOSIN 0.4 MG CAP PO SCH (08:53)
[2021-12-19] MEDS: **hydrALAZINE** 10 MG TAB PO SCH ×4 (08:54→21:13)
[2021-12-19] MEDS ORDERED: LACTOBACILLUS ACIDOPHILUS CAP (BACID) PO SCH (09:00)
[2021-12-19] MEDS: LEVEMIR (INSULIN DETEMIR) 1 UNITS/0.01ML SC SCH ×2 (13:28→21:11)
[2021-12-20] VITALS (9 sets, daily range): BP systolic 146–164; BP diastolic 62–78; O2SAT 95–98
[2021-12-20] MEDS: IPRATROPIUM 0.5MG/ALBUTEROL 2.5MG INH SOL UD 3ML (DUONEB) NEB SCH ×5 (00:53→15:17)
[2021-12-20] MEDS: LABETALOL 100MG/20ML VIAL IV PRN ×2 (05:02→08:34)
[2021-12-20 07:20] LABS: HEMOGLOBIN 10.4 g/dl (13.5-17.5); MEAN CORPUSCULAR HEMOGLOBIN 25.6 pg (27.0-33.0); MEAN CORPUSCULAR HGB CONC 31.5 g/dl (32.0-36.5); MEAN CORPUSCULAR VOLUME 81.3 fl (80.0-96.0); PLATELET COUNT, AUTOMATED 179 10^3/uL (150-450); RED BLOOD COUNT 4.06 10^6/uL (4.30-6.10); WHITE BLOOD COUNT 7.1 10^3/uL (4.0-10.0)
[2021-12-20 07:42] LABS: ALBUMIN 2.8 GM/DL (3.2-5.2); ALT/SGPT 43 U/L (12-78); BILIRUBIN,DIRECT 0.1 MG/DL (0.0-0.2); BILIRUBIN,TOTAL 0.3 MG/DL (0.2-1.0); BLOOD UREA NITROGEN 33 MG/DL (7-18); CALCIUM LEVEL 8.5 MG/DL (8.8-10.2); CARBON DIOXIDE LEVEL 26 MEQ/L (21-32); CHLORIDE LEVEL 107 MEQ/L (98-107); CREATININE FOR GFR 1.18 MG/DL (0.70-1.30); GLOMERULAR FILTRATION RATE > 60.0 (>35); GLUCOSE, FASTING 224 MG/DL (70-100); MAGNESIUM LEVEL 1.8 MG/DL (1.8-2.4); POTASSIUM SERUM 3.5 MEQ/L (3.5-5.1); SODIUM LEVEL 140 MEQ/L (136-145); TOTAL PROTEIN 6.2 GM/DL (6.4-8.2)
[2021-12-20 07:45] LABS: LYMPHOCYTES 19 % (16-44); MONOCYTES 6 % (0-5); MYELOCYTES 2 % (0-0); NEUTROPHILS 70 % (28-66); PLATELET ESTIMATE NORMAL (NORMAL)
[2021-12-20 07:46] LABS: MICROCYTOSIS 1+
[2021-12-20 07:48] LABS: OVALOCYTES 1+
[2021-12-20] MEDS: LEVEMIR (INSULIN DETEMIR) 1 UNITS/0.01ML SC SCH ×2 (08:31→21:45)
[2021-12-20] MEDS: HumaLOG INSULIN (NovoLOG) PER UNIT SC SCH ×4 (08:31→21:45)
[2021-12-20] MEDS: GABAPENTIN 100 MG CAP PO SCH ×3 (08:32→21:46)
[2021-12-20] MEDS: ENOXAPARIN 40MG/0.4ML SYRINGE (J1650 PER 10MG) SC SCH ×2 (08:32→21:45)
[2021-12-20] MEDS: FUROSEMIDE 40 MG TAB PO SCH (08:32)
[2021-12-20] MEDS: **hydrALAZINE** 10 MG TAB PO SCH ×4 (08:32→21:46)
[2021-12-20] MEDS: oxyBUTYnin *DITROPAN XL* 5 MG TABCR PO SCH (08:32)
[2021-12-20] MEDS: AUGMENTIN 875 MG TAB PO SCH ×2 (08:33→21:46)
[2021-12-20] MEDS: LACTOBACILLUS ACIDOPHILUS CAP (BACID) PO SCH (08:33)
[2021-12-20] MEDS: METOPROLOL SUCC (TopROL XL) 100MG *XL* TAB PO SCH (08:33)
[2021-12-20] MEDS: guaiFENesin ER 600 MG TAB PO SCH ×2 (08:33→21:46)
[2021-12-20] MEDS: ATORVASTATIN 20 MG TAB PO SCH (08:33)
[2021-12-20] MEDS: amLODIPine 5 MG TAB PO SCH ×2 (08:33→21:47)
[2021-12-20] MEDS: predniSONE 20 MG TAB PO SCH (08:33)
[2021-12-20] MEDS: ASPIRIN 81MG ENTERIC TABLET PO SCH (08:33)
[2021-12-20] MEDS: TAMSULOSIN 0.4 MG CAP PO SCH (08:34)
[2021-12-20] MEDS: PANTOPRAZOLE 40MG VIAL IV SCH (08:34)
[2021-12-21] VITALS (12 sets, daily range): BP systolic 139–191; BP diastolic 59–86; O2SAT 95–96
[2021-12-21 05:43] LABS: BASO % 0.3 % (0.0-1.0); EOS % 0.1 % (0.0-3.0); HEMATOCRIT 33.3 % (42.0-52.0); HEMOGLOBIN 10.2 g/dl (13.5-17.5); LYMPH # 1.4 10^3/uL (1.5-5.0); LYMPH % 15.8 % (24.0-44.0); MEAN CORPUSCULAR HEMOGLOBIN 25.3 pg (27.0-33.0); MEAN CORPUSCULAR HGB CONC 30.6 g/dl (32.0-36.5); MEAN CORPUSCULAR VOLUME 82.6 fl (80.0-96.0); MONO # 0.6 10^3/uL (0.0-0.8); MONO % 6.7 % (2.0-8.0); NEUTROPHILS # 6.6 10^3/uL (1.5-8.5); NEUTROPHILS % 73.6 % (36.0-66.0); PLATELET COUNT, AUTOMATED 195 10^3/uL (150-450); RED BLOOD COUNT 4.03 10^6/uL (4.30-6.10)
[2021-12-21 06:11] LABS: ALBUMIN 2.5 GM/DL (3.2-5.2); BILIRUBIN,DIRECT 0.1 MG/DL (0.0-0.2); BILIRUBIN,TOTAL 0.3 MG/DL (0.2-1.0); CALCIUM LEVEL 8.3 MG/DL (8.8-10.2); CREATININE FOR GFR 1.24 MG/DL (0.70-1.30); GLOMERULAR FILTRATION RATE 59.1 (>35); MAGNESIUM LEVEL 1.8 MG/DL (1.8-2.4); POTASSIUM SERUM 3.6 MEQ/L (3.5-5.1); TOTAL PROTEIN 6.3 GM/DL (6.4-8.2)
[2021-12-21] MEDS: IPRATROPIUM 0.5MG/ALBUTEROL 2.5MG INH SOL UD 3ML (DUONEB) NEB SCH ×4 (07:52→20:06)
[2021-12-21] MEDS: PANTOPRAZOLE 40MG TAB (PROTONIX) PO SCH (08:15)
[2021-12-21] MEDS: ATORVASTATIN 20 MG TAB PO SCH (08:15)
[2021-12-21] MEDS: oxyBUTYnin *DITROPAN XL* 5 MG TABCR PO SCH (08:15)
[2021-12-21] MEDS: ASPIRIN 81MG ENTERIC TABLET PO SCH (08:15)
[2021-12-21] MEDS: TAMSULOSIN 0.4 MG CAP PO SCH (08:15)
[2021-12-21] MEDS: AUGMENTIN 875 MG TAB PO SCH ×2 (08:15→20:49)
[2021-12-21] MEDS: LACTOBACILLUS ACIDOPHILUS CAP (BACID) PO SCH (08:15)
[2021-12-21] MEDS: FUROSEMIDE 40 MG TAB PO SCH (08:16)
[2021-12-21] MEDS: predniSONE 20 MG TAB PO SCH (08:16)
[2021-12-21] MEDS: GABAPENTIN 100 MG CAP PO SCH ×3 (08:16→20:49)
[2021-12-21] MEDS: guaiFENesin ER 600 MG TAB PO SCH ×2 (08:16→20:49)
[2021-12-21] MEDS: amLODIPine 5 MG TAB PO SCH ×2 (08:19→18:45)
[2021-12-21] MEDS: **hydrALAZINE** 10 MG TAB PO SCH ×2 (08:19→12:02)
[2021-12-21] MEDS: METOPROLOL SUCC (TopROL XL) 100MG *XL* TAB PO SCH (08:19)
[2021-12-21] MEDS: ENOXAPARIN 40MG/0.4ML SYRINGE (J1650 PER 10MG) SC SCH ×2 (08:20→20:48)
[2021-12-21] MEDS: LEVEMIR (INSULIN DETEMIR) 1 UNITS/0.01ML SC SCH ×2 (08:20→20:49)
[2021-12-21] MEDS: HumaLOG INSULIN (NovoLOG) PER UNIT SC SCH ×4 (08:20→20:50)
[2021-12-21] MEDS ORDERED: **hydrALAZINE** 10 MG TAB PO SCH (17:00)
[2021-12-21] MEDS: LABETALOL 100MG/20ML VIAL IV PRN (18:21)
[2021-12-21] MEDS: **hydrALAZINE** 50 MG TAB PO SCH (20:49)
[2021-12-22] VITALS (7 sets, daily range): BP systolic 142–179; BP diastolic 65–76; O2SAT 93–96
[2021-12-22] MEDS: IPRATROPIUM 0.5MG/ALBUTEROL 2.5MG INH SOL UD 3ML (DUONEB) NEB SCH ×6 (04:52→20:29)
[2021-12-22 06:07] LABS: BASO % 0.3 % (0.0-1.0); EOS % 0.4 % (0.0-3.0); HEMATOCRIT 32.3 % (42.0-52.0); HEMOGLOBIN 10.2 g/dl (13.5-17.5); LYMPH # 1.2 10^3/uL (1.5-5.0); LYMPH % 13.1 % (24.0-44.0); MEAN CORPUSCULAR HGB CONC 31.6 g/dl (32.0-36.5); MEAN CORPUSCULAR VOLUME 82.2 fl (80.0-96.0); MONO # 0.7 10^3/uL (0.0-0.8); NEUTROPHILS # 6.9 10^3/uL (1.5-8.5); NEUTROPHILS % 74.3 % (36.0-66.0); PLATELET COUNT, AUTOMATED 205 10^3/uL (150-450); RED BLOOD COUNT 3.93 10^6/uL (4.30-6.10); WHITE BLOOD COUNT 9.2 10^3/uL (4.0-10.0)
[2021-12-22 06:39] LABS: ALBUMIN 2.6 GM/DL (3.2-5.2); ALT/SGPT 47 U/L (12-78); BILIRUBIN,DIRECT 0.1 MG/DL (0.0-0.2); BILIRUBIN,TOTAL 0.4 MG/DL (0.2-1.0); BLOOD UREA NITROGEN 35 MG/DL (7-18); CALCIUM LEVEL 8.5 MG/DL (8.8-10.2); CARBON DIOXIDE LEVEL 27 MEQ/L (21-32); CHLORIDE LEVEL 104 MEQ/L (98-107); CREATININE FOR GFR 1.15 MG/DL (0.70-1.30); GLOMERULAR FILTRATION RATE > 60.0 (>35); GLUCOSE, FASTING 137 MG/DL (70-100); MAGNESIUM LEVEL 1.7 MG/DL (1.8-2.4); POTASSIUM SERUM 3.6 MEQ/L (3.5-5.1); SODIUM LEVEL 139 MEQ/L (136-145); TOTAL PROTEIN 6.3 GM/DL (6.4-8.2)
[2021-12-22] MEDS ORDERED: MAG SULF 1GM/100ML (MAG RUN) 1 GM in IV 1 EA IV ONE (06:55)
[2021-12-22] MEDS: HumaLOG INSULIN (NovoLOG) PER UNIT SC SCH ×4 (07:12→20:14)
[2021-12-22] MEDS: LACTOBACILLUS ACIDOPHILUS CAP (BACID) PO SCH (08:20)
[2021-12-22] MEDS: AUGMENTIN 875 MG TAB PO SCH ×2 (08:20→20:11)
[2021-12-22] MEDS: ASPIRIN 81MG ENTERIC TABLET PO SCH (08:20)
[2021-12-22] MEDS: guaiFENesin ER 600 MG TAB PO SCH ×2 (08:20→20:12)
[2021-12-22] MEDS: TAMSULOSIN 0.4 MG CAP PO SCH (08:20)
[2021-12-22] MEDS: ATORVASTATIN 20 MG TAB PO SCH (08:21)
[2021-12-22] MEDS: PANTOPRAZOLE 40MG TAB (PROTONIX) PO SCH (08:21)
[2021-12-22] MEDS: ENOXAPARIN 40MG/0.4ML SYRINGE (J1650 PER 10MG) SC SCH (08:21)
[2021-12-22] MEDS: LEVEMIR (INSULIN DETEMIR) 1 UNITS/0.01ML SC SCH ×2 (08:21→20:13)
[2021-12-22] MEDS: predniSONE 20 MG TAB PO SCH (08:21)
[2021-12-22] MEDS: GABAPENTIN 100 MG CAP PO SCH (08:21)
[2021-12-22] MEDS: FUROSEMIDE 40 MG TAB PO SCH (08:22)
[2021-12-22] MEDS: amLODIPine 5 MG TAB PO SCH ×2 (08:22→20:12)
[2021-12-22] MEDS: **hydrALAZINE** 50 MG TAB PO SCH ×4 (08:22→20:13)
[2021-12-22] MEDS: METOPROLOL SUCC (TopROL XL) 100MG *XL* TAB PO SCH (08:22)
[2021-12-22] MEDS: oxyBUTYnin *DITROPAN XL* 5 MG TABCR PO SCH (08:22)
[2021-12-22] MEDS ORDERED: HYDR50TA PO (09:58)
[2021-12-22] MEDS ORDERED: PRED5TA PO (09:58)
[2021-12-22] MEDS ORDERED: PRED10TA2 PO (09:58)
[2021-12-22] MEDS ORDERED: AMLO1TAB24 PO (09:58)
[2021-12-22] MEDS ORDERED: AMOX875T2 PO (09:58)
[2021-12-22] MEDS: GABAPENTIN 300 MG CAP PO SCH ×2 (16:28→20:11)
[2021-12-23] MEDS: IPRATROPIUM 0.5MG/ALBUTEROL 2.5MG INH SOL UD 3ML (DUONEB) NEB SCH ×4 (00:59→11:24)
[2021-12-23 05:24] VITALS: BP 154/71
[2021-12-23] MEDS: HumaLOG INSULIN (NovoLOG) PER UNIT SC SCH (08:31)
[2021-12-23] MEDS: LEVEMIR (INSULIN DETEMIR) 1 UNITS/0.01ML SC SCH (08:40)
[2021-12-23] MEDS: TAMSULOSIN 0.4 MG CAP PO SCH (08:41)
[2021-12-23] MEDS: GABAPENTIN 300 MG CAP PO SCH (08:41)
[2021-12-23] MEDS: ATORVASTATIN 20 MG TAB PO SCH (08:41)
[2021-12-23] MEDS: ASPIRIN 81MG ENTERIC TABLET PO SCH (08:41)
[2021-12-23] MEDS: LACTOBACILLUS ACIDOPHILUS CAP (BACID) PO SCH (08:41)
[2021-12-23] MEDS: oxyBUTYnin *DITROPAN XL* 5 MG TABCR PO SCH (08:41)
[2021-12-23] MEDS: guaiFENesin ER 600 MG TAB PO SCH (08:42)
[2021-12-23] MEDS: AUGMENTIN 875 MG TAB PO SCH (08:42)
[2021-12-23 08:43] VITALS: BP 156/68
[2021-12-23] MEDS: amLODIPine 5 MG TAB PO SCH (08:43)
[2021-12-23] MEDS: FUROSEMIDE 40 MG TAB PO SCH (08:43)
[2021-12-23] MEDS: PANTOPRAZOLE 40MG TAB (PROTONIX) PO SCH (08:43)
[2021-12-23] MEDS: **hydrALAZINE** 50 MG TAB PO SCH (08:43)
[2021-12-23] MEDS: METOPROLOL SUCC (TopROL XL) 100MG *XL* TAB PO SCH (08:49)
[2021-12-23] MEDS ORDERED: ENOXAPARIN 40MG/0.4ML SYRINGE (J1650 PER 10MG) SC SCH (09:00)
[2021-12-23] MEDS ORDERED: predniSONE 10 MG TAB PO SCH (09:00)
== END 2021-12-23 12:33 | disposition home health service (06) | DRG 871 ==
LOC: M ICU 12-15 01:29 → M 4MAIN 12-15 17:28
PROVIDERS: ADMIT Internal Medicine; ATTEND Internal Medicine
PROC: XW033E5 Introduction of Remdesivir Anti-infective into Peripheral Vein, Percutaneous Approach, New Technology Group 5 (ICD-10-PCS; principal; 2021-12-15)
PROC: 3E0333Z Introduction of Anti-inflammatory into Peripheral Vein, Percutaneous Approach (ICD-10-PCS; 2021-12-15)
DX: A41.9 Sepsis, unspecified organism (principal); J12.82 Pneumonia due to coronavirus disease 2019; I50.23 Acute on chronic systolic (congestive) heart failure; J96.21 Acute and chronic respiratory failure with hypoxia; U07.1 COVID-19; J69.0 Pneumonitis due to inhalation of food and vomit; J15.9 Unspecified bacterial pneumonia; I13.0 Hypertensive heart and chronic kidney disease with heart failure and stage 1 through stage 4 chronic kidney disease, or unspecified chronic kidney disease; I42.0 Dilated cardiomyopathy; L03.116 Cellulitis of left lower limb; I16.9 Hypertensive crisis, unspecified; J84.9 Interstitial pulmonary disease, unspecified; E87.3 Alkalosis; M06.9 Rheumatoid arthritis, unspecified; Z66 Do not resuscitate; K21.9 Gastro-esophageal reflux disease without esophagitis; J45.909 Unspecified asthma, uncomplicated; E11.51 Type 2 diabetes mellitus with diabetic peripheral angiopathy without gangrene; F03.90 Unspecified dementia, unspecified severity, without behavioral disturbance, psychotic disturbance, mood disturbance, and anxiety; I87.2 Venous insufficiency (chronic) (peripheral); M10.9 Gout, unspecified; R13.10 Dysphagia, unspecified; E78.5 Hyperlipidemia, unspecified; E11.40 Type 2 diabetes mellitus with diabetic neuropathy, unspecified; N18.31 Chronic kidney disease, stage 3a; E11.65 Type 2 diabetes mellitus with hyperglycemia; N40.1 Benign prostatic hyperplasia with lower urinary tract symptoms; R35.0 Frequency of micturition; R19.7 Diarrhea, unspecified; E73.9 Lactose intolerance, unspecified; E11.22 Type 2 diabetes mellitus with diabetic chronic kidney disease; Z99.81 Dependence on supplemental oxygen; Z79.82 Long term (current) use of aspirin; Z79.52 Long term (current) use of systemic steroids; Z87.891 Personal history of nicotine dependence; Z79.899 Other long term (current) drug therapy; Z79.4 Long term (current) use of insulin; Z88.7 Allergy status to serum and vaccine; Z88.6 Allergy status to analgesic agent

== ENCOUNTER 2022-01-12 10:29 | Outpatient (CLI) | payer MEDICARE ==
[~2022-01-12] VITALS: Ht 175.3 cm; Wt 90.7 kg
[~2022-01-12 10:29] MED LIST changes: +ALBUTEROL SULFATE 2.5 MG/0.5 ML INH NEB SOLN INH PRN; +AMOX875T2 PO; +ASPI-161 PO; +EPINEPHrine INJ 1 MG/ML 1ML AMP IM PRN; +HYDR50TA PO; +OXYB10TA23 PO; +PATIENT COMMENT; +PRED10TA2 PO; +VITA200021 PO; +diphenhydrAMINE 50MG/ML VIAL (J1200) IV PRN; +methylPREDNISolone 125MG 2ML VIAL IV PRN
[2022-01-12] MEDS ORDERED: NS 1,000 ML IV SCH (10:30)
[2022-01-12] MEDS ORDERED: FERRIC CARBOXYMALTOSE INJ 750 MG, VIAL MATE ADAPTER 1 EACH in NS 250 ML IV ONE (10:30)
[2022-01-12 10:54] VITALS: BP 138/64
[2022-01-12 12:05] VITALS: BP 176/72
== END 2022-01-12 12:05 | disposition home or self-care (01) ==
LOC: M INFU 10:29
PROVIDERS: ATTEND Internal Medicine Nephrology
DX: N18.9 Chronic kidney disease, unspecified (principal); D63.1 Anemia in chronic kidney disease; Z88.8 Allergy status to other drugs, medicaments and biological substances; Z88.7 Allergy status to serum and vaccine
CPT/HCPCS: 96365; J1439

== ENCOUNTER 2022-01-19 12:04 | Outpatient (CLI) | payer MEDICARE ==
[~2022-01-19] VITALS: Ht 175.3 cm; Wt 90.0 kg
[~2022-01-19 12:04] MED LIST changes: +FERRIC CARBOXYMALTOSE INJ 750 MG, VIAL MATE ADAPTER 1 EACH in NS 250 ML IV ONE; +NS 1,000 ML IV SCH
[2022-01-19 12:36] VITALS: BP 153/67
[2022-01-19 13:57] VITALS: BP 152/67
== END 2022-01-19 14:00 | disposition home or self-care (01) ==
LOC: M INFU 12:04
PROVIDERS: ATTEND Internal Medicine Nephrology
DX: N18.9 Chronic kidney disease, unspecified (principal); D63.1 Anemia in chronic kidney disease; Z88.8 Allergy status to other drugs, medicaments and biological substances; Z88.7 Allergy status to serum and vaccine
CPT/HCPCS: 96365; J1439